=== PATIENT | female | born 1995 | race American Indian/Alaskan Native ===

== ENCOUNTER 2017-05-12 15:09 | Emergency (ER) | payer MEDICAID, OTHER, SELFPAY ==
[2017-05-12 16:12] VITALS: BP 123/81
[2017-05-12] MEDS ORDERED: methylPREDNISolone Sodium Succinate 125 MG/2 ML SDV IVPUSH ONE (16:32)
[2017-05-12] MEDS ORDERED: Sodium Chloride 0.9% 10 ML Syringe FLUSH PRN (16:32)
[2017-05-12] MEDS ORDERED: Albuterol/Ipratropium 3.0-0.5 MG/3 ML Neb Soln NEB ONE (16:32)
[2017-05-12] MEDS ORDERED: Albuterol 0.083% 2.5 MG/3 ML Neb Soln NEB ONE (17:55)
--- NOTE | 2017-05-12 18:56 | EDM.PDOC ---
ED HPI GENERAL MEDICAL PROBLEM - General Chief Complaint: Asthma Stated Complaint: ASTHMA Time Seen by Provider: 05/12/17 16:20 Source of Information: Reports: Patient History Limitations: Reports: No Limitations - History of Present Illness INITIAL COMMENTS - FREE TEXT/NARRATIVE: 21-year-old female presents for evaluation and treatment of asthma exacerbation. Patient reports that she's been sick for "a while." patient reports over the last few days she started coughing that seems to exacerbate her asthma. She is currently complaining of cough, shortness of breath and wheezing. She has a rescue it albuterol inhaler and has been using is "a lot ". She also is on Advair, Singulair. Not any steroids at this time. No fevers. 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 Montelukast [Singulair] 10 mg PO BEDTIME 01/01/16 [History] Tiotropium [Spiriva HandiHaler] 1.29 mcg INH DAILY 02/03/16 [History] Albuterol [Proventil HFA] 2 puff INH Q2H PRN #3 inhaler 01/23/17 [Rx] Albuterol/Ipratropium [DuoNeb 3.0-0.5 MG/3 ML] 3 ml NEB Q2H PRN #10 neb [Rx] Fluticasone/Salmeterol [Advair 250-50 Diskus] 1 puff IH BID 30 Days #1 disk.w.dev 01/23/17 [Rx] Albuterol [IJD: Ventolin HFA] 2 puff INH .TWICE DAILY PRN #18 gm 05/12/17 [Rx] Azithromycin [IJD: Azithromycin] 250 mg PO DAILY #6 tab 05/12/17 [Rx] Inhaler, Assist Devices [Aerochamber with Flowsignal] 1 each ASDIRECTED #1 spacer 05/12/17 [Rx] Prednisone [IMW: predniSONE] 40 mg PO WITHBREAKFAST #11 tab 05/12/17 [Rx] Past Medical History HEENT History: Reports: None Cardiovascular History: Reports: None Respiratory History: Reports: Asthma Genitourinary History: Reports: UTI, Recurrent 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 OB/BYN History: - Infectious Disease History Infectious Disease History: Reports: Chicken Pox - Past Surgical History HEENT Surgical History: Reports: None Cardiovascular Surgical History: Reports: None Respiratory Surgical History: Reports: None Female Surgical History: Reports: None Social & Family History - Family History Family Medical History: Noncontributory Cardiac: Reports: Hypertension Respiratory: Reports: Asthma GI: Reports: None Endocrine/Metabolic: Reports: Diabetes, Type I Oncologic: Reports: Brain - Tobacco Use Smoking Status *Q: Never Smoker Second Hand Smoke Exposure: No - Caffeine Use Caffeine Use: Reports: None - Recreational Drug Use Recreational Drug Use: No Drug Use in Last 12 Months: No ED ROS GENERAL - Review of Systems Review Of Systems: See Below Constitutional: Denies: Fever HEENT: Denies: Ear Pain, Throat Pain Respiratory: Reports: Shortness of Breath, Wheezing, Cough GI/Abdominal: Denies: Nausea, Vomiting ED EXAM, GENERAL - Physical Exam Exam: See Below Exam Limited By: No Limitations General Appearance: Alert, WD/WN, Moderate Distress, Obese Eye Exam: Bilateral Eye: Normal Inspection, PERRL Ears: Normal External Exam, Normal Canal, Hearing Grossly Normal Ear Exam: Bilateral Ear: Other (TMs obscured by cerumen) Nose: Normal Inspection. No: Nasal Flaring Throat/Mouth: Normal Inspection, Normal Lips, Normal Teeth, Normal Oropharynx, Normal Voice, No Airway Compromise Respiratory/Chest: Respiratory Distress (audible wheeing), Wheezing (diffuse expiratory), Retractions (supraclavicular), Other (tachypnic) Cardiovascular: Normal Peripheral Pulses, Regular Rate, Rhythm, No Murmur Neurological: Alert, Oriented, Normal Cognition Psychiatric: Normal Affect, Normal Mood Skin Exam: Warm, Dry, Normal Color Course - Vital Signs Last Recorded V/S: Last Vital Signs Temp 36.0 C 05/12/17 16:09 Pulse 97 05/12/17 16:09 Resp 20 05/12/17 16:09 BP 123/81 05/12/17 16:09 Pulse Ox 95 05/12/17 17:55 - Orders/Labs/Meds Labs: Laboratory Tests 05/12/17 05/12/17 Range/Units 16:40 16:40 WBC 11.64 H (3.98-10.04) K/mm3 RBC 5.46 H (3.98-5.22) M/mm3 Hgb 13.9 (11.2-15.7) gm/L Hct 42.9 (34.1-44.9) % MCV 78.6 L (79.4-94.8) fl MCH 25.5 L (25.6-32.2) pg MCHC 32.4 (32.2-35.5) g/dl RDW Std Deviation 42.7 (36.4-46.3) fL Plt Count 517 H (182-369) K/mm3 MPV 9.0 L (9.4-12.3) fl Neut % (Auto) 51.7 (34.0-71.1) % Lymph % (Auto) 29.9 (19.3-51.7) % [place] % (Auto) 4.4 L (4.7-12.5) % Eos % (Auto) 13.2 H (0.7-5.8) Baso % (Auto) 0.6 (0.1-1.2) % Neut # (Auto) 6.02 (1.56-6.13) K/mm3 Lymph # (Auto) 3.48 (1.18-3.74) K/mm3 [place] # (Auto) 0.51 H (0.24-0.36) K/mm3 Eos # (Auto) 1.54 H (0.04-0.36) K/mm3 Baso # (Auto) 0.07 (0.01-0.08) K/mm3 Sodium 141 (136-145) mEq/L Potassium 4.2 (3.5-5.1) mEq/L Chloride 105 (98-107) mEq/L Carbon Dioxide 23 (21-32) mEq/L Anion Gap 17.2 H (5-15) BUN 7 (7-18) mg/dL Creatinine 0.7 (0.55-1.02) mg/dL Est Cr Clr Drug Dosing 108.86 mL/min Estimated GFR (MDRD) > 60 (>60) mL/min BUN/Creatinine Ratio 10.0 L (14-18) Glucose 100 (74-106) mg/dL Calcium 8.9 (8.5-10.1) mg/dL Magnesium 1.7 L (1.8-2.4) mg/dl Total Bilirubin 0.1 L (0.2-1.0) mg/dL AST 21 (15-37) U/L ALT 40 (14-59) U/L Alkaline Phosphatase 100 (46-116) U/L Total Protein 7.9 (6.4-8.2) g/dl Albumin 3.8 (3.4-5.0) g/dl Globulin 4.1 gm/dL Albumin/Globulin Ratio 0.9 L (1-2) Meds: Medications Discontinued Medications Generic Name Dose Route Start Last Admin Trade Name Freq PRN Reason Stop Dose Admin Albuterol 2.5 mg 05/12/17 17:55 05/12/17 18:03 Proventil Neb Soln NEB 05/12/17 17:56 2.5 mg ONETIME ONE Administration Albuterol/Ipratropium 3 ml 05/12/17 16:32 05/12/17 16:52 Duoneb 3.0-0.5 Mg/3 Ml NEB 05/12/17 16:33 3 ml ONETIME ONE Administration Methylprednisolone Sodium Succinate 125 mg 05/12/17 16:32 05/12/17 16:43 Solu-Medrol IVPUSH 05/12/17 16:33 125 mg ONETIME ONE Administration Sodium Chloride 10 ml 05/12/17 16:32 05/12/17 16:43 Saline Flush FLUSH 10 ml ASDIRECTED PRN Administration Keep Vein Open - Radiology Interpretation Free Text/Narrative:: chest xray shows no acute intrathoracic process - Re-Assessments/Exams Free Text/Narrative Re-Assessment/Exam: 05/12/17 18:43 influenza returned negative. discussed labs and imaging with the patient. significantly improved after steroids and nebs. plan will be to discharge her home with steroids, a z-domingo and close follow-up. discharge instructions as documented. Departure - Departure Time of Disposition: 18:50 Disposition: Home, Self-Care 01 Condition: Fair Clinical Impression: Exacerbation of asthma - Discharge Information Prescriptions: Albuterol [IJD: Ventolin HFA] 2 puff INH .TWICE DAILY PRN #18 gm PRN Reason: Shortness Of Breath Azithromycin [IJD: Azithromycin] 250 mg PO DAILY #6 tab Inhaler, Assist Devices [Aerochamber with Flowsignal] 1 each MC ASDIRECTED #1 spacer Prednisone [IMW: predniSONE] 40 mg PO WITHBREAKFAST #11 tab Instructions: Asthma, Adult Referrals: PCP,None [Primary Care Provider] - Forms: ED Department Discharge Additional Instructions: Azithromycin as prescribed. Two tabs on day 1 followed by 1 tabs on day 2 through 5 for 5 days of antibiotic total. Use the albuterol inhaler 1-2 tabs every 4-6 hours as a for shortness of breath. 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 Prednisone taper. 40 mg days 1 through 3, 20 mg days 4 through 6 and 10 mg days 7 through 10. Follow-up with family medicine this week for recheck. Recommend zafar jernigan or Arcelia Oneil at the [facility]. Call [phone] to schedule one of them. Please return to the ER for symptoms change or worsen.
--- NOTE | 2017-05-13 11:53 | CR ---
Chest: Two views of the chest were obtained. Comparison: Prior chest x-ray of 04/27/16. Heart size and mediastinum are normal. Lungs are clear. Bony structures are within normal limits. Impression: 1. Nothing acute is identified on two-view chest x-ray. Diagnostic code #1
== END 2017-05-12 19:07 | disposition home or self-care (01) ==
LOC: JD.ED 15:09
DX: J45.901 Unspecified asthma with (acute) exacerbation (principal); Z79.2 Long term (current) use of antibiotics; Z79.899 Other long term (current) drug therapy; Z88.1 Allergy status to other antibiotic agents
CPT/HCPCS: 36415; 71046; 80053; 83735; 85025; 87804; 94640; 96374; 99285; J2930; J7050; 99284

== ENCOUNTER 2017-06-28 02:20 | Emergency (ER) | payer MEDICAID, SELFPAY ==
[2017-06-28 02:32] VITALS: BP 138/83
[2017-06-28] MEDS ORDERED: Bupivacaine 0.5% 10 ML SDV INJECT ONE (02:54)
--- NOTE | 2017-06-28 03:15 | EDM.PDOC ---
ED HPI GENERAL MEDICAL PROBLEM - General Chief Complaint: ENT Problem Stated Complaint: TOOTH ACHE Time Seen by Provider: 06/28/17 02:49 Source of Information: Reports: Patient History Limitations: Reports: No Limitations - History of Present Illness INITIAL COMMENTS - FREE TEXT/NARRATIVE: The patient presents with left lower molar pain. This has been coming and going for months but now for the past few days it is constant and very painful. She has a cracked tooth. She has no fever or chills. Onset: Gradual Duration: Week(s): Location: Reports: Face Quality: Reports: Sharp Severity: Severe Improves with: Reports: None Worsens with: Reports: None Associated Symptoms: Reports: No Other Symptoms Left Lower Tooth/Teeth Pain Score (Numeric/FACES): 7 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 06/28/17 02:32 Home Meds: Home Meds Montelukast [Singulair] 10 mg PO BEDTIME 01/01/16 [History] Tiotropium [Spiriva HandiHaler] 1.29 mcg INH DAILY 02/03/16 [History] Albuterol [Proventil HFA] 2 puff INH Q2H PRN #3 inhaler 01/23/17 [Rx] Albuterol/Ipratropium [DuoNeb 3.0-0.5 MG/3 ML] 3 ml NEB Q2H PRN #10 neb [Rx] Fluticasone/Salmeterol [Advair 250-50 Diskus] 1 puff IH BID 30 Days #1 disk.w.dev 01/23/17 [Rx] Inhaler, Assist Devices [Aerochamber with Flowsignal] 1 each ASDIRECTED #1 spacer 05/12/17 [Rx] Past Medical History HEENT History: Reports: None Cardiovascular History: Reports: None Respiratory History: Reports: Asthma Genitourinary History: Reports: UTI, Recurrent 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/BYN History: - Infectious Disease History Infectious Disease History: Reports: Chicken Pox - Past Surgical History HEENT Surgical History: Reports: None Cardiovascular Surgical History: Reports: None Respiratory Surgical History: Reports: None Female Surgical History: Reports: None Social & Family History - Family History Family Medical History: Noncontributory Cardiac: Reports: Hypertension Respiratory: Reports: Asthma GI: Reports: None Endocrine/Metabolic: Reports: Diabetes, Type I Oncologic: Reports: Brain - Tobacco Use Smoking Status *Q: Never Smoker Second Hand Smoke Exposure: No - Caffeine Use Caffeine Use: Reports: None - Recreational Drug Use Recreational Drug Use: No Drug Use in Last 12 Months: No ED ROS ENT - Review of Systems Review Of Systems: See Below Constitutional: Reports: No Symptoms HEENT: Reports: Dental Pain Respiratory: Reports: No Symptoms Cardiovascular: Reports: No Symptoms Endocrine: Reports: No Symptoms GI/Abdominal: Reports: No Symptoms : Reports: No Symptoms ED EXAM, ENT - Physical Exam Exam: See Below Exam Limited By: No Limitations General Appearance: Alert, No Apparent Distress Ears: Normal External Exam Nose: Normal Inspection Mouth/Throat: Other (Cracked left lower molar) Head: Atraumatic, Normocephalic Neck: Normal Inspection Respiratory/Chest: No Respiratory Distress ED ENT PROCEDURES - Additional/Other Procedure(s) Other (Free Text) Procedure(s): I used 2ccs of 0.5% bupivacain to anaesthatize the left inferior alveolar nerve. The patient tolerated the procedure well and she had good anaesthesia. Course - Vital Signs Last Recorded V/S: Last Vital Signs Temp 97.7 F 06/28/17 02:28 Pulse 86 06/28/17 02:28 Resp 18 06/28/17 02:28 BP 138/83 06/28/17 02:28 Pulse Ox 97 06/28/17 02:28 - Orders/Labs/Meds Meds: Medications Discontinued Medications Generic Name Dose Route Start Last Admin Trade Name Loni PRN Reason Stop Dose Admin Bupivacaine HCl 10 ml 06/28/17 02:54 06/28/17 03:03 Sensorcaine-Mpf 0.5% INJECT 06/28/17 02:55 10 ml ONETIME ONE Administration - Re-Assessments/Exams Free Text/Narrative Re-Assessment/Exam: 06/28/17 03:12 I used 0.5% bupivacane to anaesthetize her tooth. I will get her on some hydrocodone and pen VK. Departure - Departure Time of Disposition: 03:15 Disposition: Home, Self-Care 01 Condition: Good Clinical Impression: Pain, dental, Dental abscess - Discharge Information Referrals: Antonia Arzate NP [Primary Care Provider] - Additional Instructions: Take the penicillin and hydrocodone as prescribed. Follow up with your dentist. Please return if you are worse.
== END 2017-06-28 03:32 | disposition home or self-care (01) ==
LOC: JD.ED 02:20
DX: K04.7 Periapical abscess without sinus (principal); J45.909 Unspecified asthma, uncomplicated; Z88.1 Allergy status to other antibiotic agents
CPT/HCPCS: 64400; 99283-25

== ENCOUNTER 2017-08-12 23:49 | Emergency (ER) | payer MEDICAID ==
[2017-08-12 23:56] VITALS: BP 114/58
[2017-08-13] MEDS: Sodium Chloride 0.9% 1,000 ML ONE ×2 (01:53→02:04)
[2017-08-13] MEDS ORDERED: Sodium Chloride 0.9% 1,000 ML IRR SCH (02:00)
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
== END 2017-08-13 02:10 | disposition home or self-care (01) ==
LOC: JD.ED 23:49
DX: Z77.098 Contact with and (suspected) exposure to other hazardous, chiefly nonmedicinal, chemicals (principal); H57.8 Other specified disorders of eye and adnexa; Z88.1 Allergy status to other antibiotic agents; Z79.899 Other long term (current) drug therapy; J45.909 Unspecified asthma, uncomplicated
CPT/HCPCS: 99283; J7040

== ENCOUNTER 2017-10-26 10:56 | Inpatient (IN) | payer MEDICAID ==
[2017-10-26] MEDS ORDERED: Albuterol/Ipratropium 3.0-0.5 MG/3 ML Neb Soln NEB ONE ×2 (11:42→12:32)
--- NOTE | 2017-10-26 11:47 | EDM.PDOC ---
ED HPI GENERAL MEDICAL PROBLEM - General Chief Complaint: Chest Pain Stated Complaint: CHEST PAIN Time Seen by Provider: 10/26/17 11:32 Source of Information: Reports: Patient History Limitations: Reports: No Limitations - History of Present Illness INITIAL COMMENTS - FREE TEXT/NARRATIVE: Patient is a 22-year-old female presents ED complaining of chest tightness and discomfort. States this morning at about 9:00 symptoms started. She was changing diapers at that time. Pain is worse with taking a deep breath and also with any movement. States she is wheezing. She's had a cough with white sputum faint amount. She's had some sinus congestion with runny nose for the past few days. No documented fever. No sore throat. She has a history of asthma and states she can take a deep breath but notes that with excessive breathing her chest is more tight. She is very anxious as we speak. Crying as we speak. She has no history of DVT or PE. She is currently a nonsmoker. She does not take control. She has taken albuterol, Symbicort, DayQuil, and also saline spray with minimal relief. Patient is a [id number] mom takes care of 2 children. Last menstrual cycle 10/04/2017. She has not been sexually active and denies being . See history 2, para 2, 0, miscarriage 0. 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: Reports: Other (see below) Other 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: inhaler, neb Chest Pain Score (Numeric/FACES): 8 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 10/26/17 19:16 Home Meds: Home Meds Montelukast [Singulair] 10 mg PO BEDTIME 01/01/16 [History] Albuterol [Proventil HFA] 2 puff INH Q2H PRN #3 inhaler 01/23/17 [Rx] Albuterol/Ipratropium [DuoNeb 3.0-0.5 MG/3 ML] 3 ml NEB Q2H PRN #10 neb [Rx] Inhaler, Assist Devices [Aerochamber with Flowsignal] 1 each MC ASDIRECTED #1 spacer 05/12/17 [Rx] Past Medical History HEENT History: Reports: None Cardiovascular History: Reports: None Respiratory History: Reports: Asthma Genitourinary History: Reports: UTI, Recurrent ROLLWAY WORKER History: Reports: Other ROLLWAY WORKER History: - Infectious Disease History Infectious Disease History: Reports: Chicken Pox - Past Surgical History HEENT Surgical History: Reports: Oral Surgery Cardiovascular Surgical History: Reports: None Female Surgical History: Reports: None Social & Family History - Family History Family Medical History: Noncontributory Cardiac: Reports: Hypertension Respiratory: Reports: Asthma GI: Reports: None Endocrine/Metabolic: Reports: Diabetes, Type I Oncologic: Reports: Brain - Tobacco Use Smoking Status *Q: Never Smoker - Caffeine Use Caffeine Use: Reports: None - Recreational Drug Use Recreational Drug Use: No - Living Situation & Occupation Living situation: Reports: Single, with Family Occupation: Unemployed ED ROS GENERAL - Review of Systems Review Of Systems: ROS reveals no pertinent complaints other than HPI. ED EXAM, GENERAL - Physical Exam Exam: See Below Exam Limited By: No Limitations General Appearance: Alert, WD/WN, Anxious, Mild Distress Ears: Hearing Grossly Normal Nose: Normal Inspection, Nasal Swelling, Nasal Drainage, Clear Rhinorrhea Throat/Mouth: Normal Voice, No Airway Compromise Head: Atraumatic, Normocephalic Neck: Normal Inspection, Supple, Non-Tender, Full Range of Motion Respiratory/Chest: No Respiratory Distress, No Accessory Muscle Use, Chest Non- Tender (With palpation), Wheezing (Throughout) Cardiovascular: Normal Peripheral Pulses, No Murmur, Tachycardia Peripheral Pulses: 3+: Radial (L), Radial (R) GI/Abdominal: Normal Bowel Sounds, Soft, Non-Tender, No Organomegaly, No Distention Extremities: Normal Inspection, Normal Range of Motion, Non-Tender, No Pedal Edema Neurological: Alert, Oriented, CN II-XII Intact, Normal Cognition, No Motor/ Sensory Deficits Psychiatric: Normal Affect, Normal Mood Skin Exam: Warm, Dry, Intact, Normal Color, No Rash Course - Vital Signs Last Recorded V/S: Last Vital Signs Temp 97.7 F 10/27/17 08:00 Pulse 92 10/27/17 08:03 Resp 15 10/27/17 08:00 BP 107/55 L 10/27/17 08:03 Pulse Ox 93 L 10/27/17 09:40 - Orders/Labs/Meds Orders: Active Orders 24 hr Category Date Time Status CULTURE BLOOD [BC] Stat Lab 10/26/17 15:34 Ordered CULTURE BLOOD [BC] Stat Lab 10/26/17 15:56 Received DRUG SCREEN, URINE [URCHEM] Stat Lab 10/26/17 14:53 Ordered Blood Culture x2 Reflex Set [OM.PC] Stat Oth 10/26/17 15:34 Ordered Medication Orders Acetaminophen (Tylenol) 650 mg PO Q6H PRN PRN Reason: Pain/Fever Albuterol (Proventil Neb Soln) 2.5 mg NEB Q2H PRN PRN Reason: Shortness of Breath Last Admin: 10/27/17 02:30 Dose: 2.5 mg Admin: 10/26/17 22:44 Dose: 2.5 mg Albuterol/Ipratropium (Duoneb 3.0-0.5 Mg/3 Ml) 3 ml NEB QIDRT [facility] Last Admin: 10/27/17 09:39 Dose: 3 ml Admin: 10/27/17 05:09 Dose: 3 ml Benzonatate (Tessalon Perles) 200 mg PO TID [facility] Last Admin: 10/27/17 09:06 Dose: 200 mg Admin: 10/26/17 21:59 Dose: 200 mg Enoxaparin Sodium (Lovenox) 40 mg SUBCUT BEDTIME [facility] Last Admin: 10/26/17 21:49 Dose: 40 mg Guaifenesin/Phenylephrine HCl (Robitussin Dm) 10 ml PO Q6H PRN PRN Reason: Cough Last Admin: 10/27/17 05:01 Dose: 10 ml Admin: 10/26/17 22:00 Dose: 10 ml Azithromycin 500 mg/ Sodium (Chloride) 250 mls @ 250 mls/hr IV Q24H [facility] Last Admin: 10/26/17 20:03 Dose: 250 mls/hr Ceftriaxone Sodium 2 gm/ (Sodium Chloride) 100 mls @ 100 mls/hr IV Q24H [facility] Last Admin: 10/26/17 22:00 Dose: 100 mls/hr Lactated Ringer's (Ringers, Lactated) 1,000 mls @ 150 mls/hr IV ASDIRECTED [facility] Stop: 10/27/17 16:15 Methylprednisolone Sodium Succinate (Solu-Medrol) 125 mg IVPUSH Q6H [facility] Last Admin: 10/27/17 09:06 Dose: 125 mg Admin: 10/27/17 03:33 Dose: 125 mg Admin: 10/26/17 21:47 Dose: 125 mg Montelukast Sodium (Singulair) 10 mg PO BEDTIME GISSELL Last Admin: 10/26/17 21:49 Dose: 10 mg Temazepam (Restoril) 7.5 mg PO BEDTIME PRN PRN Reason: Insomnia Labs: Laboratory Tests 10/26/17 10/26/17 10/26/17 Range/Units 12:17 12:17 12:17 WBC 12.03 H (3.98-10.04) K/mm3 RBC 5.56 H (3.98-5.22) M/mm3 Hgb 14.9 (11.2-15.7) gm/L Hct 44.7 (34.1-44.9) % MCV 80.4 (79.4-94.8) fl MCH 26.8 (25.6-32.2) pg MCHC 33.3 (32.2-35.5) g/dl RDW Std Deviation 41.4 (36.4-46.3) fL Plt Count 396 H (182-369) K/mm3 MPV 9.5 (9.4-12.3) fl Neutrophils % (Manual) 73 H (40-60) % Band Neutrophils % 1 (0-10) % Lymphocytes % (Manual) 20 (20-40) % Atypical Lymphs % 0 % Monocytes % (Manual) 2 (2-10) % Eosinophils % (Manual) 4 (0.7-5.8) % Basophils % (Manual) 0 L (0.1-1.2) Platelet Estimate Adequate RBC Morph Comment Normal D-Dimer, Quantitative 0.21 (0.19-0.50) mg/L Sodium 143 (136-145) mEq/L Potassium 4.7 (3.5-5.1) mEq/L Chloride 107 (98-107) mEq/L Carbon Dioxide 24 (21-32) mEq/L Anion Gap 16.7 H (5-15) BUN 6 L (7-18) mg/dL Creatinine 0.8 (0.55-1.02) mg/dL Est Cr Clr Drug Dosing 90.47 mL/min Estimated GFR (MDRD) > 60 (>60) mL/min BUN/Creatinine Ratio 7.5 L (14-18) Glucose 110 H (74-106) mg/dL Lactic Acid (0.4-2.0) mmol/L Calcium 9.0 (8.5-10.1) mg/dL Total Bilirubin 0.3 (0.2-1.0) mg/dL AST 21 (15-37) U/L ALT 40 (14-59) U/L Alkaline Phosphatase 100 (46-116) U/L C-Reactive Protein 3.8 H* (<1.0) mg/dL Total Protein 8.4 H (6.4-8.2) g/dl Albumin 4.0 (3.4-5.0) g/dl Globulin 4.4 gm/dL Albumin/Globulin Ratio 0.9 L (1-2) TSH 3rd Generation (0.358-3.74) uIU/mL HCG, Qual (NEGATIVE) Urine Color (Yellow) Urine Appearance (Clear) Urine pH (5.0-8.0) Ur Specific Hawley (1.005-1.030) Urine Protein (Negative) Urine Glucose (UA) (Negative) Urine Ketones (Negative) Urine Occult Blood (Negative) Urine Nitrite (Negative) Urine Bilirubin (Negative) Urine Urobilinogen (0.2-1.0) Ur Leukocyte Esterase (Negative) Urine RBC (0-5) /hpf Urine WBC (0-5) /hpf Ur Epithelial Cells (0-5) /hpf Urine Bacteria (FEW) /hpf Urine Mucus (FEW) /hpf Urine Opiates Screen (NEGATIVE) Ur Buprenorphine Scrn (NEGATIVE) Ur Oxycodone Screen (NEGATIVE) Urine Methadone Screen (NEGATIVE) Ur Propoxyphene Screen (NEGATIVE) Ur Barbiturates Screen (NEGATIVE) Ur Tricyclics Screen (NEGATIVE) Ur Phencyclidine Scrn (NEGATIVE) Ur Amphetamine Screen (NEGATIVE) U Methamphetamines Scrn (NEGATIVE) U Benzodiazepines Scrn (NEGATIVE) U Cocaine Metab Screen (NEGATIVE) U Marijuana (THC) Screen (NEGATIVE) Mycoplasma pneumon IgM (NEGATIVE) 10/26/17 10/26/17 10/26/17 Range/Units 12:17 12:17 12:17 WBC (3.98-10.04) K/mm3 RBC (3.98-5.22) M/mm3 Hgb (11.2-15.7) gm/L Hct (34.1-44.9) % MCV (79.4-94.8) fl MCH (25.6-32.2) pg MCHC (32.2-35.5) g/dl RDW Std Deviation (36.4-46.3) fL Plt Count (182-369) K/mm3 MPV (9.4-12.3) fl Neutrophils % (Manual) (40-60) % Band Neutrophils % (0-10) % Lymphocytes % (Manual) (20-40) % Atypical Lymphs % % Monocytes % (Manual) (2-10) % Eosinophils % (Manual) (0.7-5.8) % Basophils % (Manual) (0.1-1.2) Platelet Estimate RBC Morph Comment D-Dimer, Quantitative (0.19-0.50) mg/L Sodium (136-145) mEq/L Potassium (3.5-5.1) mEq/L Chloride (98-107) mEq/L Carbon Dioxide (21-32) mEq/L Anion Gap (5-15) BUN (7-18) mg/dL Creatinine (0.55-1.02) mg/dL Est Cr Clr Drug Dosing mL/min Estimated GFR (MDRD) (>60) mL/min BUN/Creatinine Ratio (14-18) Glucose (74-106) mg/dL Lactic Acid (0.4-2.0) mmol/L Calcium (8.5-10.1) mg/dL Total Bilirubin (0.2-1.0) mg/dL AST (15-37) U/L ALT (14-59) U/L Alkaline Phosphatase (46-116) U/L C-Reactive Protein (<1.0) mg/dL Total Protein (6.4-8.2) g/dl Albumin (3.4-5.0) g/dl Globulin gm/dL Albumin/Globulin Ratio (1-2) TSH 3rd Generation 1.127 (0.358-3.74) uIU/mL HCG, Qual Negative (NEGATIVE) Urine Color (Yellow) Urine Appearance (Clear) Urine pH (5.0-8.0) Ur Specific Hawley (1.005-1.030) Urine Protein (Negative) Urine Glucose (UA) (Negative) Urine Ketones (Negative) Urine Occult Blood (Negative) Urine Nitrite (Negative) Urine Bilirubin (Negative) Urine Urobilinogen (0.2-1.0) Ur Leukocyte Esterase (Negative) Urine RBC (0-5) /hpf Urine WBC (0-5) /hpf Ur Epithelial Cells (0-5) /hpf Urine Bacteria (FEW) /hpf Urine Mucus (FEW) /hpf Urine Opiates Screen (NEGATIVE) Ur Buprenorphine Scrn (NEGATIVE) Ur Oxycodone Screen (NEGATIVE) Urine Methadone Screen (NEGATIVE) Ur Propoxyphene Screen (NEGATIVE) Ur Barbiturates Screen (NEGATIVE) Ur Tricyclics Screen (NEGATIVE) Ur Phencyclidine Scrn (NEGATIVE) Ur Amphetamine Screen (NEGATIVE) U Methamphetamines Scrn (NEGATIVE) U Benzodiazepines Scrn (NEGATIVE) U Cocaine Metab Screen (NEGATIVE) U Marijuana (THC) Screen (NEGATIVE) Mycoplasma pneumon IgM Negative (NEGATIVE) 10/26/17 10/26/17 10/26/17 Range/Units 14:53 14:53 15:56 WBC (3.98-10.04) K/mm3 RBC (3.98-5.22) M/mm3 Hgb (11.2-15.7) gm/L Hct (34.1-44.9) % MCV (79.4-94.8) fl MCH (25.6-32.2) pg MCHC (32.2-35.5) g/dl RDW Std Deviation (36.4-46.3) fL Plt Count (182-369) K/mm3 MPV (9.4-12.3) fl Neutrophils % (Manual) (40-60) % Band Neutrophils % (0-10) % Lymphocytes % (Manual) (20-40) % Atypical Lymphs % % Monocytes % (Manual) (2-10) % Eosinophils % (Manual) (0.7-5.8) % Basophils % (Manual) (0.1-1.2) Platelet Estimate RBC Morph Comment D-Dimer, Quantitative (0.19-0.50) mg/L Sodium (136-145) mEq/L Potassium (3.5-5.1) mEq/L Chloride (98-107) mEq/L Carbon Dioxide (21-32) mEq/L Anion Gap (5-15) BUN (7-18) mg/dL Creatinine (0.55-1.02) mg/dL Est Cr Clr Drug Dosing mL/min Estimated GFR (MDRD) (>60) mL/min BUN/Creatinine Ratio (14-18) Glucose (74-106) mg/dL Lactic Acid 1.3 (0.4-2.0) mmol/L Calcium (8.5-10.1) mg/dL Total Bilirubin (0.2-1.0) mg/dL AST (15-37) U/L ALT (14-59) U/L Alkaline Phosphatase (46-116) U/L C-Reactive Protein (<1.0) mg/dL Total Protein (6.4-8.2) g/dl Albumin (3.4-5.0) g/dl Globulin gm/dL Albumin/Globulin Ratio (1-2) TSH 3rd Generation (0.358-3.74) uIU/mL HCG, Qual (NEGATIVE) Urine Color Yellow (Yellow) Urine Appearance Clear (Clear) Urine pH 6.0 (5.0-8.0) Ur Specific Hawley 1.020 (1.005-1.030) Urine Protein Negative (Negative) Urine Glucose (UA) Negative (Negative) Urine Ketones Negative (Negative) Urine Occult Blood Trace-intact H (Negative) Urine Nitrite Negative (Negative) Urine Bilirubin Negative (Negative) Urine Urobilinogen 0.2 (0.2-1.0) Ur Leukocyte Esterase Negative (Negative) Urine RBC 0-5 (0-5) /hpf Urine WBC 0-5 (0-5) /hpf Ur Epithelial Cells 0-5 (0-5) /hpf Urine Bacteria Rare (FEW) /hpf Urine Mucus Not seen (FEW) /hpf Urine Opiates Screen Negative (NEGATIVE) Ur Buprenorphine Scrn Negative (NEGATIVE) Ur Oxycodone Screen Negative (NEGATIVE) Urine Methadone Screen Negative (NEGATIVE) Ur Propoxyphene Screen Negative (NEGATIVE) Ur Barbiturates Screen Negative (NEGATIVE) Ur Tricyclics Screen Negative (NEGATIVE) Ur Phencyclidine Scrn Negative (NEGATIVE) Ur Amphetamine Screen Negative (NEGATIVE) U Methamphetamines Scrn Negative (NEGATIVE) U Benzodiazepines Scrn Negative (NEGATIVE) U Cocaine Metab Screen Negative (NEGATIVE) U Marijuana (THC) Screen Negative (NEGATIVE) Mycoplasma pneumon IgM (NEGATIVE) Meds: Medications Generic Name Dose Route Start Last Admin Trade Name Freq PRN Reason Stop Dose Admin Acetaminophen 650 mg 10/26/17 19:05 Tylenol PO Q6H PRN Pain/Fever Albuterol 2.5 mg 10/26/17 19:03 10/27/17 02:30 Proventil Neb Soln NEB 2.5 mg Q2H PRN Administration Shortness of Breath Albuterol/Ipratropium 3 ml 10/27/17 06:00 10/27/17 09:39 Duoneb 3.0-0.5 Mg/3 Ml NEB 3 ml QIDRT GISSELL Administration Benzonatate 200 mg 10/26/17 21:00 10/27/17 09:06 Tessalon Perles PO 200 mg TID GISSELL Administration Enoxaparin Sodium 40 mg 10/26/17 21:00 10/26/17 21:49 Lovenox SUBCUT 40 mg BEDTIME GISSELL Administration Guaifenesin/Phenylephrine HCl 10 ml 10/26/17 21:33 10/27/17 05:01 Robitussin Dm PO 10 ml Q6H PRN Administration Cough Azithromycin 500 mg/ Sodium 250 mls @ 250 mls/hr 10/26/17 19:00 10/26/17 20: 03 Chloride IV 250 mls/hr Q24H GISSELL Administration Ceftriaxone Sodium 2 gm/ 100 mls @ 100 mls/hr 10/26/17 22:00 10/26/17 22:00 Sodium Chloride IV 100 mls/hr Q24H GISSELL Administration Lactated Ringer's 1,000 mls @ 150 mls/hr 10/27/17 10:15 Ringers, Lactated IV 10/27/17 16:15 ASDIRECTED GISSELL Methylprednisolone Sodium Succinate 125 mg 10/26/17 22:00 10/27/17 09:06 Solu-Medrol IVPUSH 125 mg Q6H GISSELL Administration Montelukast Sodium 10 mg 10/26/17 21:00 10/26/17 21:49 Singulair PO 10 mg BEDTIME GISSELL Administration Temazepam 7.5 mg 10/26/17 19:15 Restoril PO BEDTIME PRN Insomnia Discontinued Medications Generic Name Dose Route Start Last Admin Trade Name Freq PRN Reason Stop Dose Admin Acetaminophen 975 mg 10/26/17 17:42 10/26/17 18:07 Tylenol PO 10/26/17 17:43 975 mg NOW ONE Administration Albuterol 2.5 mg 10/26/17 15:09 10/26/17 15:41 Proventil Neb Soln NEB 10/26/17 15:10 2.5 mg ONETIME ONE Administration Albuterol 2.5 mg 10/26/17 18:06 10/26/17 18:32 Proventil Neb Soln NEB 10/26/17 18:07 2.5 mg ONETIME ONE Administration Albuterol 2.5 mg 10/26/17 18:06 10/26/17 19:31 Proventil Neb Soln NEB 10/26/17 18:07 Not Given ONETIME ONE Albuterol/Ipratropium 3 ml 10/26/17 11:42 10/26/17 12:18 Duoneb 3.0-0.5 Mg/3 Ml NEB 10/26/17 11:43 3 ml ONETIME ONE Administration Albuterol/Ipratropium 3 ml 10/26/17 12:32 10/26/17 12:47 Duoneb 3.0-0.5 Mg/3 Ml NEB 10/26/17 12:33 3 ml ONETIME ONE Administration Albuterol/Ipratropium 3 ml 10/26/17 20:00 10/26/17 21:27 Duoneb 3.0-0.5 Mg/3 Ml NEB Not Given QID GISSELL Sodium Chloride 1,000 mls @ 999 mls/hr 10/26/17 12:33 10/26/17 12:50 Normal Saline IV 10/26/17 13:33 999 mls/hr ONETIME ONE Administration Sodium Chloride 1,000 mls @ 999 mls/hr 10/26/17 15:34 10/26/17 15:40 Normal Saline IV 10/26/17 16:34 999 mls/hr ONETIME ONE Administration Ceftriaxone Sodium 2 gm/ 100 mls @ 200 mls/hr 10/26/17 22:00 Sodium Chloride IV Q24H GISSELL Magnesium Sulfate 4 gm/ Premix 100 mls @ 300 mls/hr 10/27/17 10:02 IV 10/27/17 10:03 ONETIME ONE Lorazepam 0.5 mg 10/26/17 12:33 10/26/17 15:48 Ativan IVPUSH 10/26/17 12:34 0.5 mg ONETIME ONE Administration Lorazepam Confirm 10/26/17 15:48 10/26/17 16:55 Ativan Administered 10/26/17 15:49 Not Given Dose 2 mg .ROUTE .STK-MED ONE Methylprednisolone Sodium Succinate 125 mg 10/26/17 15:33 10/26/17 15:35 Solu-Medrol IVPUSH 10/26/17 15:34 125 mg ONETIME ONE Administration Prednisone 40 mg 10/26/17 13:02 10/26/17 16:55 Prednisone PO 10/26/17 13:03 Not Given ONETIME ONE - Re-Assessments/Exams Free Text/Narrative Re-Assessment/Exam: Patients heart rates 133. SPO2 91% on room air. Blood pressure within normal limits. She is afebrile. IV established. Initial lab work was include: CBC, chem 14, CRP, d-dimer, chest x-ray two-view, and EKG. EKG revealed sinus tachycardia at a rate of 132. No acute ST changes noted. Chest x-ray impression: Reviewed with Dr. Chun with no findings concerning for pneumonia. Reassessment, patient states breathing is improving. Still having chest tightness. Worse with taking a deep breath. Heart rate remains tachycardic 139. SPO2 92%. I ordered a second DuoNeb, Ativan 0.5 mg IVP since she appears anxious , and normal saline 1 L IV bolus. Still awaiting for labs to be completed. Labs reviewed: White blood cell count mildly elevated at 12.03, platelet count 396, hemoglobin 14.9. D-dimer 0.21.CMP no significant findings. CRP 3.8. HCG negative. TSH, UA, and urine drug screen pending. Ordered prednisone 40mg PO. 1436 Reexamination patient's heart rate remains 118, respiratory rate 29, SPO2 89-92%. Patient states with ambulation and exertion she is a little short of breath. I do believe patient requires hospitalization for asthma exacerbation. [address] Dr[address] Carrera with no answer. They will continue to try. 10/26/17 15:07 Reassessment, patient is upset after child vomited all over herself. Patient is more short of breath. Continues to have audible wheezes. Ordered albuterol neb tx. 10/26/17 15:25 Per nursing staff patient was having increased difficult with breathing. Has a hard time catching her breath. Complaining of increasing chest discomfort. O2 sats 86% on room air. Heart rate 143. Patient is crying. Sweat noted to the upper lip and nose. Temperature recheck 101.2F. Lung sounds continued to have expiratory wheezing throughout. Nasal cannula placed 4 L/m. SPO2 93%. Heart rate decreasing. During this time I did speak with Dr. Carrera sandstone splitter hospitalist for admitting the patient. Suggested ordering site Medrol 125 mg IV. I had ordered a ordered a albuterol neb treatment and requested completion now. dental services director will be over to speak with the patient and arranging placement for the kids. Once kids are taken care of patient will be transferred over to the hospital. Patient's nurse brought to my attention the patient did not receive oral prednisone. 1609 They are unable to come in contact with the to come and get the kids so the patient can be admitted to the hospital. In addition they were only able to obtain one blood culture along with the lactic acid. 1808 Reassessment, patient continuing to have sob. HR 120's, BP stable. Ordered albuterol neb tx x 1. We are awaiting for patient to be transferred to the floor. Patient requires ICU. I spoke with Dr. Carrera and she was updated about patients status. Patient was admitted to the hospital with orders for admission placed by Nursing Staff. Departure - Departure Time of Disposition: 14:36 Disposition: Admitted As Inpatient 65 Condition: Fair Clinical Impression: Exacerbation of asthma Qualifiers: Asthma severity: moderate Asthma persistence: persistent Qualified Code(s): J45.41 - Moderate persistent asthma with (acute) exacerbation - Discharge Information - My Orders Last 24 Hours: My Active Orders 10/26/17 14:53 DRUG SCREEN, URINE [URCHEM] Stat 10/26/17 15:34 CULTURE BLOOD [BC] Stat Blood Culture x2 Reflex Set [OM.PC] Stat 10/26/17 15:56 CULTURE BLOOD [BC] Stat - Assessment/Plan Last 24 Hours: My Active Orders 10/26/17 14:53 DRUG SCREEN, URINE [URCHEM] Stat 10/26/17 15:34 CULTURE BLOOD [BC] Stat Blood Culture x2 Reflex Set [OM.PC] Stat 10/26/17 15:56 CULTURE BLOOD [BC] Stat
[2017-10-26] MEDS ORDERED: Sodium Chloride 0.9% 1,000 ML IV ONE ×2 (12:33→15:34)
[2017-10-26] MEDS ORDERED: LORazepam 2 MG/ML SDV IVPUSH ONE (12:33)
--- NOTE | 2017-10-26 13:55 | CR ---
Chest: Two views of the chest were obtained. Comparison: Prior chest x-ray of 05/12/17. Heart size and mediastinum are normal. Lungs are clear. Bony structures are unremarkable. Impression: 1. Nothing acute is seen on two-view chest x-ray. Diagnostic code #1
[2017-10-26] MEDS ORDERED: Albuterol 0.083% 2.5 MG/3 ML Neb Soln NEB ONE ×3 (15:09→18:06)
[2017-10-26] MEDS ORDERED: methylPREDNISolone Sodium Succinate 125 MG/2 ML SDV IVPUSH ONE (15:33)
[2017-10-26] MEDS: LORazepam 2 MG/ML SDV ONE ×2 (15:57→16:55)
[2017-10-26] MEDS: predniSONE 20 MG Tab PO ONE ×2 (15:58→16:55)
[2017-10-26] MEDS ORDERED: Acetaminophen 325 MG Tab PO ONE (17:42)
[2017-10-26] MEDS ORDERED: Temazepam 7.5 MG Cap PO PRN (19:15)
[2017-10-26] MEDS ORDERED: Azithromycin 500 MG AdvVial IV SCH (19:15)
--- NOTE | 2017-10-26 19:22 | PCM.HP ---
H&P History of Present Illness - General Date of Service: 10/26/17 Admit Problem/Dx: Admission Diagnosis/Problem Admission Diagnosis/Problem Asthma with acute exacerbation Source of Information: Provider History Limitations: Reports: No Limitations, Other (Patient was extremely anxious and crying, could not provide a history) - History of Present Illness Initial Comments - Free Text/Narative: 22 year old female with asthma presents with a history of SOB, productive cough with difficulty breathing. The symptoms have been present for 24-48 hours. She had to rest frequently while trying to seek medical assistance. The patient will be admitted to the ICU with elevated resp rate and hypoxia. She is a full code. Onset of Symptoms: Reports: Gradual Symptom Onset Date: 10/24/17 Duration of Symptoms: Reports: Day(s):, Getting Worse Location: Reports: Chest Quality: Reports: Same as Previous Episode Improves with: Reports: Medication Worsens with: Reports: None Context: Reports: Sick Contact (unknown), Exertion (Exacerbation of SOB) Associated Symptoms: Reports: cough w sputum, Diaphoresis, Fever/Chills, Loss of Appetite, Malaise, Nausea/Vomiting, Shortness of Breath, Weakness Chest Pain Score (Numeric/FACES): 8 - Related Data Allergies/Adverse Reactions: Allergies Allergy/AdvReac Type Severity Reaction Status Date / Time levofloxacin Allergy Mild Hives Verified 10/26/17 19:16 Home Medications: Home Meds Montelukast [Singulair] 10 mg PO BEDTIME 01/01/16 [History] Albuterol [Proventil HFA] 2 puff INH Q2H PRN #3 inhaler 01/23/17 [Rx] Albuterol/Ipratropium [DuoNeb 3.0-0.5 MG/3 ML] 3 ml NEB Q2H PRN #10 neb [Rx] Inhaler, Assist Devices [Aerochamber with Flowsignal] 1 each MC ASDIRECTED #1 spacer 05/12/17 [Rx] Past Medical History HEENT History: Reports: None Cardiovascular History: Reports: None Respiratory History: Reports: Asthma Genitourinary History: Reports: UTI, Recurrent [employer] History: Reports: Other OB/BYN History: - Infectious Disease History Infectious Disease History: Reports: Chicken Pox - Past Surgical History HEENT Surgical History: Reports: Oral Surgery Respiratory Surgical History: Reports: None Female Surgical History: Reports: None Social & Family History - Family History Family Medical History: Noncontributory Cardiac: Reports: Hypertension Respiratory: Reports: Asthma GI: Reports: None Endocrine/Metabolic: Reports: Diabetes, Type I Oncologic: Reports: Brain - Tobacco Use Smoking Status *Q: Never Smoker Second Hand Smoke Exposure: No - Caffeine Use Caffeine Use: Reports: None - Recreational Drug Use Recreational Drug Use: No - Living Situation & Occupation Living situation: Reports: Single, with Family Occupation: Unemployed H&P Review of Systems - Review of Systems: Review Of Systems: See Below General: Reports: Malaise, Weakness, Decreased Appetite HEENT: Reports: Sinus Congestion Pulmonary: Reports: Shortness of Breath, Wheezing Cardiovascular: Reports: No Symptoms Gastrointestinal: Reports: No Symptoms Genitourinary: Reports: No Symptoms Musculoskeletal: Reports: No Symptoms Skin: Reports: No Symptoms Psychiatric: Reports: Mood Lability, Anxiety Neurological: Reports: No Symptoms Hematologic/Lymphatic: Reports: No Symptoms Immunologic: Reports: No Symptoms Exam - Exam Exam: See Below - Vital Signs Vital Signs: Last Vital Signs Temp 36.6 C 10/26/17 18:30 Pulse 128 H 10/26/17 18:30 Resp 26 H 10/26/17 18:30 BP 116/65 10/26/17 18:30 Pulse Ox 98 10/26/17 18:30 Weight: 77.156 kg - Exam Quality Assessment: Supplemental Oxygen General: Alert, Oriented, Cooperative, Mild Distress HEENT: EOMI, Nares Patent, Normal Nasal Septum, Pupils Equal, Pupils Reactive, PERRLA Neck: Trachea Midline Lungs: Normal Respiratory Effort, Decreased Breath Sounds, Rhonchi, Wheezing Cardiovascular: Regular Rate, Tachycardia GI/Abdominal Exam: Normal Bowel Sounds, Soft, Non-Tender, No Organomegaly, No Distention (Female) Exam: Deferred Rectal (Female) Exam: Deferred Back Exam: Normal Inspection Extremities: Normal Inspection, Slow Capillary Refill Skin: Warm Neurological: Cranial Nerves Intact Neuro Extensive - Mental Status: Alert, Oriented x3 Neuro Extensive - Motor, Sensory, Reflexes: CN II-XII Intact Psychiatric: Alert, Anxious - Patient Data Lab Results Last 24 hrs: Laboratory Results - last 24 hr 10/26/17 10/26/17 10/26/17 Range/Units 12:17 12:17 12:17 WBC 12.03 H (3.98-10.04) K/mm3 RBC 5.56 H (3.98-5.22) M/mm3 Hgb 14.9 (11.2-15.7) gm/L Hct 44.7 (34.1-44.9) % MCV 80.4 (79.4-94.8) fl MCH 26.8 (25.6-32.2) pg MCHC 33.3 (32.2-35.5) g/dl RDW Std Deviation 41.4 (36.4-46.3) fL Plt Count 396 H (182-369) K/mm3 MPV 9.5 (9.4-12.3) fl Neutrophils % (Manual) 73 H (40-60) % Band Neutrophils % 1 (0-10) % Lymphocytes % (Manual) 20 (20-40) % Atypical Lymphs % 0 % Monocytes % (Manual) 2 (2-10) % Eosinophils % (Manual) 4 (0.7-5.8) % Basophils % (Manual) 0 L (0.1-1.2) Platelet Estimate Adequate RBC Morph Comment Normal D-Dimer, Quantitative 0.21 (0.19-0.50) mg/L Sodium 143 (136-145) mEq/L Potassium 4.7 (3.5-5.1) mEq/L Chloride 107 (98-107) mEq/L Carbon Dioxide 24 (21-32) mEq/L Anion Gap 16.7 H (5-15) BUN 6 L (7-18) mg/dL Creatinine 0.8 (0.55-1.02) mg/dL Est Cr Clr Drug Dosing 90.47 mL/min Estimated GFR (MDRD) > 60 (>60) mL/min BUN/Creatinine Ratio 7.5 L (14-18) Glucose 110 H (74-106) mg/dL Lactic Acid (0.4-2.0) mmol/L Calcium 9.0 (8.5-10.1) mg/dL Total Bilirubin 0.3 (0.2-1.0) mg/dL AST 21 (15-37) U/L ALT 40 (14-59) U/L Alkaline Phosphatase 100 (46-116) U/L C-Reactive Protein 3.8 H* (<1.0) mg/dL Total Protein 8.4 H (6.4-8.2) g/dl Albumin 4.0 (3.4-5.0) g/dl Globulin 4.4 gm/dL Albumin/Globulin Ratio 0.9 L (1-2) TSH 3rd Generation (0.358-3.74) uIU/mL HCG, Qual (NEGATIVE) Urine Color (Yellow) Urine Appearance (Clear) Urine pH (5.0-8.0) Ur Specific [place] (1.005-1.030) Urine Protein (Negative) Urine Glucose (UA) (Negative) Urine Ketones (Negative) Urine Occult Blood (Negative) Urine Nitrite (Negative) Urine Bilirubin (Negative) Urine Urobilinogen (0.2-1.0) Ur Leukocyte Esterase (Negative) Urine RBC (0-5) /hpf Urine WBC (0-5) /hpf Ur Epithelial Cells (0-5) /hpf Urine Bacteria (FEW) /hpf Urine Mucus (FEW) /hpf Urine Opiates Screen (NEGATIVE) Ur Buprenorphine Scrn (NEGATIVE) Ur Oxycodone Screen (NEGATIVE) Urine Methadone Screen (NEGATIVE) Ur Propoxyphene Screen (NEGATIVE) Ur Barbiturates Screen (NEGATIVE) Ur Tricyclics Screen (NEGATIVE) Ur Phencyclidine Scrn (NEGATIVE) Ur Amphetamine Screen (NEGATIVE) U Methamphetamines Scrn (NEGATIVE) U Benzodiazepines Scrn (NEGATIVE) U Cocaine Metab Screen (NEGATIVE) U Marijuana (THC) Screen (NEGATIVE) Mycoplasma pneumon IgM (NEGATIVE) 10/26/17 10/26/17 10/26/17 Range/Units 12:17 12:17 12:17 WBC (3.98-10.04) K/mm3 RBC (3.98-5.22) M/mm3 Hgb (11.2-15.7) gm/L Hct (34.1-44.9) % MCV (79.4-94.8) fl MCH (25.6-32.2) pg MCHC (32.2-35.5) g/dl RDW Std Deviation (36.4-46.3) fL Plt Count (182-369) K/mm3 MPV (9.4-12.3) fl Neutrophils % (Manual) (40-60) % Band Neutrophils % (0-10) % Lymphocytes % (Manual) (20-40) % Atypical Lymphs % % Monocytes % (Manual) (2-10) % Eosinophils % (Manual) (0.7-5.8) % Basophils % (Manual) (0.1-1.2) Platelet Estimate RBC Morph Comment D-Dimer, Quantitative (0.19-0.50) mg/L Sodium (136-145) mEq/L Potassium (3.5-5.1) mEq/L Chloride (98-107) mEq/L Carbon Dioxide (21-32) mEq/L Anion Gap (5-15) BUN (7-18) mg/dL Creatinine (0.55-1.02) mg/dL Est Cr Clr Drug Dosing mL/min Estimated GFR (MDRD) (>60) mL/min BUN/Creatinine Ratio (14-18) Glucose (74-106) mg/dL Lactic Acid (0.4-2.0) mmol/L Calcium (8.5-10.1) mg/dL Total Bilirubin (0.2-1.0) mg/dL AST (15-37) U/L ALT (14-59) U/L Alkaline Phosphatase (46-116) U/L C-Reactive Protein (<1.0) mg/dL Total Protein (6.4-8.2) g/dl Albumin (3.4-5.0) g/dl Globulin gm/dL Albumin/Globulin Ratio (1-2) TSH 3rd Generation 1.127 (0.358-3.74) uIU/mL HCG, Qual Negative (NEGATIVE) Urine Color (Yellow) Urine Appearance (Clear) Urine pH (5.0-8.0) Ur Specific [place] (1.005-1.030) Urine Protein (Negative) Urine Glucose (UA) (Negative) Urine Ketones (Negative) Urine Occult Blood (Negative) Urine Nitrite (Negative) Urine Bilirubin (Negative) Urine Urobilinogen (0.2-1.0) Ur Leukocyte Esterase (Negative) Urine RBC (0-5) /hpf Urine WBC (0-5) /hpf Ur Epithelial Cells (0-5) /hpf Urine Bacteria (FEW) /hpf Urine Mucus (FEW) /hpf Urine Opiates Screen (NEGATIVE) Ur Buprenorphine Scrn (NEGATIVE) Ur Oxycodone Screen (NEGATIVE) Urine Methadone Screen (NEGATIVE) Ur Propoxyphene Screen (NEGATIVE) Ur Barbiturates Screen (NEGATIVE) Ur Tricyclics Screen (NEGATIVE) Ur Phencyclidine Scrn (NEGATIVE) Ur Amphetamine Screen (NEGATIVE) U Methamphetamines Scrn (NEGATIVE) U Benzodiazepines Scrn (NEGATIVE) U Cocaine Metab Screen (NEGATIVE) U Marijuana (THC) Screen (NEGATIVE) Mycoplasma pneumon IgM Negative (NEGATIVE) 10/26/17 10/26/17 10/26/17 Range/Units 14:53 14:53 15:56 WBC (3.98-10.04) K/mm3 RBC (3.98-5.22) M/mm3 Hgb (11.2-15.7) gm/L Hct (34.1-44.9) % MCV (79.4-94.8) fl MCH (25.6-32.2) pg MCHC (32.2-35.5) g/dl RDW Std Deviation (36.4-46.3) fL Plt Count (182-369) K/mm3 MPV (9.4-12.3) fl Neutrophils % (Manual) (40-60) % Band Neutrophils % (0-10) % Lymphocytes % (Manual) (20-40) % Atypical Lymphs % % Monocytes % (Manual) (2-10) % Eosinophils % (Manual) (0.7-5.8) % Basophils % (Manual) (0.1-1.2) Platelet Estimate RBC Morph Comment D-Dimer, Quantitative (0.19-0.50) mg/L Sodium (136-145) mEq/L Potassium (3.5-5.1) mEq/L Chloride (98-107) mEq/L Carbon Dioxide (21-32) mEq/L Anion Gap (5-15) BUN (7-18) mg/dL Creatinine (0.55-1.02) mg/dL Est Cr Clr Drug Dosing mL/min Estimated GFR (MDRD) (>60) mL/min BUN/Creatinine Ratio (14-18) Glucose (74-106) mg/dL Lactic Acid 1.3 (0.4-2.0) mmol/L Calcium (8.5-10.1) mg/dL Total Bilirubin (0.2-1.0) mg/dL AST (15-37) U/L ALT (14-59) U/L Alkaline Phosphatase (46-116) U/L C-Reactive Protein (<1.0) mg/dL Total Protein (6.4-8.2) g/dl Albumin (3.4-5.0) g/dl Globulin gm/dL Albumin/Globulin Ratio (1-2) TSH 3rd Generation (0.358-3.74) uIU/mL HCG, Qual (NEGATIVE) Urine Color Yellow (Yellow) Urine Appearance Clear (Clear) Urine pH 6.0 (5.0-8.0) Ur Specific [place] 1.020 (1.005-1.030) Urine Protein Negative (Negative) Urine Glucose (UA) Negative (Negative) Urine Ketones Negative (Negative) Urine Occult Blood Trace-intact H (Negative) Urine Nitrite Negative (Negative) Urine Bilirubin Negative (Negative) Urine Urobilinogen 0.2 (0.2-1.0) Ur Leukocyte Esterase Negative (Negative) Urine RBC 0-5 (0-5) /hpf Urine WBC 0-5 (0-5) /hpf Ur Epithelial Cells 0-5 (0-5) /hpf Urine Bacteria Rare (FEW) /hpf Urine Mucus Not seen (FEW) /hpf Urine Opiates Screen Negative (NEGATIVE) Ur Buprenorphine Scrn Negative (NEGATIVE) Ur Oxycodone Screen Negative (NEGATIVE) Urine Methadone Screen Negative (NEGATIVE) Ur Propoxyphene Screen Negative (NEGATIVE) Ur Barbiturates Screen Negative (NEGATIVE) Ur Tricyclics Screen Negative (NEGATIVE) Ur Phencyclidine Scrn Negative (NEGATIVE) Ur Amphetamine Screen Negative (NEGATIVE) U Methamphetamines Scrn Negative (NEGATIVE) U Benzodiazepines Scrn Negative (NEGATIVE) U Cocaine Metab Screen Negative (NEGATIVE) U Marijuana (THC) Screen Negative (NEGATIVE) Mycoplasma pneumon IgM (NEGATIVE) Result Diagrams: 10/27/17 05:30 10/27/17 05:30 - Problem List (1) Exacerbation of asthma SNOMED Code(s): 334537848 ICD Code: J45.901 - UNSPECIFIED ASTHMA WITH (ACUTE) EXACERBATION Status: Acute Current Visit: Yes Qualifiers: Asthma severity: moderate Asthma persistence: persistent Qualified Code(s ): J45.41 - Moderate persistent asthma with (acute) exacerbation (2) Pneumonia SNOMED Code(s): 909359488 ICD Code: J18.9 - PNEUMONIA, UNSPECIFIED ORGANISM Status: Acute Current Visit: No Qualifiers: Pneumonia type: due to unspecified organism Laterality: right Lung location: lower lobe of lung Qualified Code(s): J18.1 - Lobar pneumonia, unspecified organism Problem List Initiated/Reviewed/Updated: Yes Orders Last 24hrs: Active Orders 24 hr Category Date Time Status Patient Status [ADT] Routine ADT 10/26/17 18:18 Active EKG Documentation Completion [RC] STAT Care 10/26/17 11:16 Active POCTesting [POC Labs] [RC] ASDIRECTED Care 10/26/17 19:07 Ordered RT Aerosol Therapy [RC] ASDIRECTED Care 10/26/17 12:33 Active RT Aerosol Therapy [RC] ASDIRECTED Care 10/26/17 15:09 Active RT Aerosol Therapy [RC] ASDIRECTED Care 10/26/17 18:06 Active RT Aerosol Therapy [RC] ASDIRECTED Care 10/26/17 19:03 Ordered RT Peak Flow Measurement [RC] ASDIRECTED Care 10/26/17 19:06 Ordered CXR [Chest 2V] [CR] Routine Exams 10/28/17 10:00 Ordered BMP [BASIC METABOLIC PANEL,BMP] [CHEM] DAILY Lab 10/27/17 05:00 Ordered BMP [BASIC METABOLIC PANEL,BMP] [CHEM] DAILY Lab 10/28/17 05:00 Ordered BMP [BASIC METABOLIC PANEL,BMP] [CHEM] DAILY Lab 10/29/17 05:00 Ordered BMP [BASIC METABOLIC PANEL,BMP] [CHEM] DAILY Lab 10/30/17 05:00 Ordered CBC WITH AUTO DIFF [HEME] DAILY Lab 10/27/17 05:00 Ordered CBC WITH AUTO DIFF [HEME] DAILY Lab 10/28/17 05:00 Ordered CBC WITH AUTO DIFF [HEME] DAILY Lab 10/29/17 05:00 Ordered CBC WITH AUTO DIFF [HEME] DAILY Lab 10/30/17 05:00 Ordered CRP [C-REACTIVE PROTEIN] [CHEM] DAILY Lab 10/27/17 05:00 Ordered CRP [C-REACTIVE PROTEIN] [CHEM] DAILY Lab 10/28/17 05:00 Ordered CRP [C-REACTIVE PROTEIN] [CHEM] DAILY Lab 10/29/17 05:00 Ordered CRP [C-REACTIVE PROTEIN] [CHEM] DAILY Lab 10/30/17 05:00 Ordered CULTURE BLOOD [BC] Stat Lab 10/26/17 15:34 Ordered CULTURE BLOOD [BC] Stat Lab 10/26/17 15:56 Received CULTURE SPUTUM + SMEAR [RM] Routine Lab 10/26/17 19:10 Ordered DRUG SCREEN, URINE [URCHEM] Stat Lab 10/26/17 14:53 Ordered LACTIC ACID [CHEM] DAILY Lab 10/27/17 05:00 Ordered LACTIC ACID [CHEM] DAILY Lab 10/28/17 05:00 Ordered LACTIC ACID [CHEM] DAILY Lab 10/29/17 05:00 Ordered LACTIC ACID [CHEM] DAILY Lab 10/30/17 05:00 Ordered MAGNESIUM [CHEM] DAILY Lab 10/27/17 05:00 Ordered MAGNESIUM [CHEM] DAILY Lab 10/28/17 05:00 Ordered MAGNESIUM [CHEM] DAILY Lab 10/29/17 05:00 Ordered MAGNESIUM [CHEM] DAILY Lab 10/30/17 05:00 Ordered MISC TEST Routine Lab 10/26/17 19:14 Ordered MYCOPLASMA PNEUMONIAE IGM AB [CHEM] Routine Lab 10/27/17 05:00 Ordered STREP PNEUMONIAE ANTIGEN [MREF] Routine Lab 10/26/17 19:11 Ordered Acetaminophen [Tylenol] Med 10/26/17 19:05 Ordered 650 mg PO Q6H PRN Albuterol [Proventil Neb Soln] Med 10/26/17 19:03 Ordered 2.5 mg NEB Q2H PRN Albuterol/Ipratropium [DuoNeb 3.0-0.5 MG/3 ML] Med 10/26/17 20:00 Ordered 3 ml NEB QID Azithromycin [Zithromax] 500 mg Med 10/26/17 19:00 Active Sodium Chloride 0.9% [Normal Saline] 250 ml IV Q24H Enoxaparin [Lovenox] Med 10/26/17 19:15 Ordered 40 mg SUBCUT Q24H Montelukast [Singulair] Med 10/26/17 21:00 Ordered 10 mg PO BEDTIME Temazepam [Restoril] Med 10/26/17 19:15 Ordered 7.5 mg PO BEDTIME PRN cefTRIAXone [Rocephin] 2 gm Med 10/26/17 22:00 Ordered Sodium Chloride 0.9% [Normal Saline] 100 ml IV Q24H methylPREDNISolone Sod Succ [Solu-MEDROL] Med 10/26/17 19:15 Ordered 125 mg IVPUSH Q6H Blood Culture x2 Reflex Set [OM.PC] Stat Oth 10/26/17 15:34 Ordered Isolation [COMM] Routine Oth 10/26/17 19:14 Ordered Medication Orders Acetaminophen (Tylenol) 650 mg PO Q6H PRN PRN Reason: Pain/Fever Albuterol (Proventil Neb Soln) 2.5 mg NEB Q2H PRN PRN Reason: Shortness of Breath Albuterol/Ipratropium (Duoneb 3.0-0.5 Mg/3 Ml) 3 ml NEB QID GISSELL Enoxaparin Sodium (Lovenox) 40 mg SUBCUT BEDTIME GISSELL Ceftriaxone Sodium 2 gm/ (Sodium Chloride) 100 mls @ 200 mls/hr IV Q24H GISSELL Azithromycin 500 mg/ Sodium (Chloride) 250 mls @ 250 mls/hr IV Q24H GISSELL Methylprednisolone Sodium Succinate (Solu-Medrol) 125 mg IVPUSH Q6H GISSELL Montelukast Sodium (Singulair) 10 mg PO BEDTIME GISSELL Temazepam (Restoril) 7.5 mg PO BEDTIME PRN PRN Reason: Insomnia Assessment/Plan Comment:: Impression: Nonsmoker with cute exacerbation of Asthma; respiratory distress with hypoxia Query CAP Nonsmoker Over weight, BMI 30.1 Plan: ICU, keep O2 sat>92% Nebs scheduled and prn IV steroids Peak Flow meter pre/post O2, keep sat>92% Zithromax/Rocephin-empiric treatment, PNA Daily labs Home meds CXR, 2 view DVT/GI prophylaxis Consult SHAISTA re: young children
[2017-10-26] MEDS: Azithromycin 500 MG in Sodium Chloride 0.9% 250 ML IV SCH (20:03)
[2017-10-26] MEDS: Albuterol/Ipratropium 3.0-0.5 MG/3 ML Neb Soln NEB SCH ×2 (20:34→21:27)
[2017-10-26] MEDS: methylPREDNISolone Sodium Succinate 125 MG/2 ML SDV IVPUSH SCH (21:47)
[2017-10-26] MEDS: Enoxaparin 40 MG/0.4 ML Syringe SUBCUT SCH (21:49)
[2017-10-26] MEDS: Montelukast 10 MG Tab PO SCH (21:49)
[2017-10-26] MEDS: Benzonatate 100 MG Cap PO SCH (21:59)
[2017-10-26] MEDS ORDERED: cefTRIAXone 2 GM in Sodium Chloride 0.9% 100 ML IV SCH (22:00)
[2017-10-26] MEDS ORDERED: cefTRIAXone 1 GM in Sodium Chloride 0.9% 100 ML IV SCH (22:00)
[2017-10-26] MEDS: cefTRIAXone 2 GM in Sodium Chloride 0.9% 100 ML IV SCH (22:00)
[2017-10-26] MEDS: guaiFENesin/Dextromethorphan 100-10 MG/5 ML Soln 5 ML Cup PO PRN (22:00)
[2017-10-26] MEDS: Albuterol 0.083% 2.5 MG/3 ML Neb Soln NEB PRN (22:44)
[2017-10-27] MEDS: Albuterol 0.083% 2.5 MG/3 ML Neb Soln NEB PRN (02:30)
[2017-10-27] MEDS: methylPREDNISolone Sodium Succinate 125 MG/2 ML SDV IVPUSH SCH ×4 (03:33→21:43)
[2017-10-27] MEDS: guaiFENesin/Dextromethorphan 100-10 MG/5 ML Soln 5 ML Cup PO PRN (05:01)
[2017-10-27] MEDS: Albuterol/Ipratropium 3.0-0.5 MG/3 ML Neb Soln NEB SCH ×4 (05:09→20:56)
[2017-10-27] MEDS: Benzonatate 100 MG Cap PO SCH ×3 (09:06→20:38)
[2017-10-27] MEDS ORDERED: Magnesium Sulfate/Water 4 GM in Premix Bag 1 BAG IV ONE (10:02)
[2017-10-27] MEDS ORDERED: Lactated Ringers 1,000 ML IV SCH (10:15)
--- NOTE | 2017-10-27 14:03 | PCM.PN ---
- General Info Date of Service: 10/27/17 Functional Status: Reports: Tolerating Diet (advanced diet as tolerated) - Review of Systems General: Reports: No Symptoms HEENT: Reports: No Symptoms Pulmonary: Reports: Shortness of Breath (decreased), Pleuritic Chest Pain, Cough , Sputum Cardiovascular: Reports: No Symptoms Gastrointestinal: Reports: No Symptoms Genitourinary: Reports: No Symptoms Musculoskeletal: Reports: No Symptoms Skin: Reports: No Symptoms Neurological: Reports: No Symptoms Psychiatric: Reports: No Symptoms - Patient Data Vitals - Most Recent: Last Vital Signs Temp 37.1 C 10/27/17 12:00 Pulse 92 10/27/17 08:03 Resp 15 10/27/17 12:00 BP 110/66 10/27/17 12:00 Pulse Ox 93 L 10/27/17 09:40 Weight - Most Recent: 77.156 kg I&O - Last 24 Hours: Intake & Output 10/26/17 10/27/17 10/27/17 22:59 06:59 14:59 Intake Total 248 897 500 Output Total 850 600 Balance 248 47 -100 Lab Results Last 24 Hours: Laboratory Results - last 24 hr 10/26/17 10/26/17 10/26/17 Range/Units 12:17 14:53 14:53 WBC (3.98-10.04) K/mm3 RBC (3.98-5.22) M/mm3 Hgb (11.2-15.7) gm/L Hct (34.1-44.9) % MCV (79.4-94.8) fl MCH (25.6-32.2) pg MCHC (32.2-35.5) g/dl RDW Std Deviation (36.4-46.3) fL Plt Count (182-369) K/mm3 MPV (9.4-12.3) fl Neut % (Auto) (34.0-71.1) % Lymph % (Auto) (19.3-51.7) % [place] % (Auto) (4.7-12.5) % Eos % (Auto) (0.7-5.8) Baso % (Auto) (0.1-1.2) % Neut # (Auto) (1.56-6.13) K/mm3 Lymph # (Auto) (1.18-3.74) K/mm3 [place] # (Auto) (0.24-0.36) K/mm3 Eos # (Auto) (0.04-0.36) K/mm3 Baso # (Auto) (0.01-0.08) K/mm3 Manual Slide Review Sodium (136-145) mEq/L Potassium (3.5-5.1) mEq/L Chloride (98-107) mEq/L Carbon Dioxide (21-32) mEq/L Anion Gap (5-15) BUN (7-18) mg/dL Creatinine (0.55-1.02) mg/dL Est Cr Clr Drug Dosing mL/min Estimated GFR (MDRD) (>60) mL/min BUN/Creatinine Ratio (14-18) Glucose (74-106) mg/dL Lactic Acid (0.4-2.0) mmol/L Calcium (8.5-10.1) mg/dL Magnesium (1.8-2.4) mg/dl C-Reactive Protein (<1.0) mg/dL Urine Color Yellow (Yellow) Urine Appearance Clear (Clear) Urine pH 6.0 (5.0-8.0) Ur Specific [place] 1.020 (1.005-1.030) Urine Protein Negative (Negative) Urine Glucose (UA) Negative (Negative) Urine Ketones Negative (Negative) Urine Occult Blood Trace-intact H (Negative) Urine Nitrite Negative (Negative) Urine Bilirubin Negative (Negative) Urine Urobilinogen 0.2 (0.2-1.0) Ur Leukocyte Esterase Negative (Negative) Urine RBC 0-5 (0-5) /hpf Urine WBC 0-5 (0-5) /hpf Ur Epithelial Cells 0-5 (0-5) /hpf Urine Bacteria Rare (FEW) /hpf Urine Mucus Not seen (FEW) /hpf Urine Opiates Screen Negative (NEGATIVE) Ur Buprenorphine Scrn Negative (NEGATIVE) Ur Oxycodone Screen Negative (NEGATIVE) Urine Methadone Screen Negative (NEGATIVE) Ur Propoxyphene Screen Negative (NEGATIVE) Ur Barbiturates Screen Negative (NEGATIVE) Ur Tricyclics Screen Negative (NEGATIVE) Ur Phencyclidine Scrn Negative (NEGATIVE) Ur Amphetamine Screen Negative (NEGATIVE) U Methamphetamines Scrn Negative (NEGATIVE) U Benzodiazepines Scrn Negative (NEGATIVE) U Cocaine Metab Screen Negative (NEGATIVE) U Marijuana (THC) Screen Negative (NEGATIVE) Mycoplasma pneumon IgM Negative (NEGATIVE) 10/26/17 10/27/17 10/27/17 Range/Units 15:56 05:30 05:30 WBC 10.72 H (3.98-10.04) K/mm3 RBC 4.94 (3.98-5.22) M/mm3 Hgb 13.6 (11.2-15.7) gm/L Hct 40.2 (34.1-44.9) % MCV 81.4 (79.4-94.8) fl MCH 27.5 (25.6-32.2) pg MCHC 33.8 (32.2-35.5) g/dl RDW Std Deviation 42.2 (36.4-46.3) fL Plt Count 369 (182-369) K/mm3 MPV 9.6 (9.4-12.3) fl Neut % (Auto) 88.8 H (34.0-71.1) % Lymph % (Auto) 10.4 L (19.3-51.7) % [place] % (Auto) 0.6 L (4.7-12.5) % Eos % (Auto) 0 L (0.7-5.8) Baso % (Auto) 0.0 L (0.1-1.2) % Neut # (Auto) 9.53 H (1.56-6.13) K/mm3 Lymph # (Auto) 1.11 L (1.18-3.74) K/mm3 [place] # (Auto) 0.06 L (0.24-0.36) K/mm3 Eos # (Auto) 0.00 L (0.04-0.36) K/mm3 Baso # (Auto) 0.00 L (0.01-0.08) K/mm3 Manual Slide Review Normal smear Sodium 140 (136-145) mEq/L Potassium 3.7 (3.5-5.1) mEq/L Chloride 106 (98-107) mEq/L Carbon Dioxide 19 L (21-32) mEq/L Anion Gap 18.7 H (5-15) BUN 7 (7-18) mg/dL Creatinine 0.8 (0.55-1.02) mg/dL Est Cr Clr Drug Dosing 90.47 mL/min Estimated GFR (MDRD) > 60 (>60) mL/min BUN/Creatinine Ratio 8.8 L (14-18) Glucose 180 H (74-106) mg/dL Lactic Acid 1.3 (0.4-2.0) mmol/L Calcium 8.8 (8.5-10.1) mg/dL Magnesium 1.6 L (1.8-2.4) mg/dl C-Reactive Protein 7.4 H* (<1.0) mg/dL Urine Color (Yellow) Urine Appearance (Clear) Urine pH (5.0-8.0) Ur Specific [place] (1.005-1.030) Urine Protein (Negative) Urine Glucose (UA) (Negative) Urine Ketones (Negative) Urine Occult Blood (Negative) Urine Nitrite (Negative) Urine Bilirubin (Negative) Urine Urobilinogen (0.2-1.0) Ur Leukocyte Esterase (Negative) Urine RBC (0-5) /hpf Urine WBC (0-5) /hpf Ur Epithelial Cells (0-5) /hpf Urine Bacteria (FEW) /hpf Urine Mucus (FEW) /hpf Urine Opiates Screen (NEGATIVE) Ur Buprenorphine Scrn (NEGATIVE) Ur Oxycodone Screen (NEGATIVE) Urine Methadone Screen (NEGATIVE) Ur Propoxyphene Screen (NEGATIVE) Ur Barbiturates Screen (NEGATIVE) Ur Tricyclics Screen (NEGATIVE) Ur Phencyclidine Scrn (NEGATIVE) Ur Amphetamine Screen (NEGATIVE) U Methamphetamines Scrn (NEGATIVE) U Benzodiazepines Scrn (NEGATIVE) U Cocaine Metab Screen (NEGATIVE) U Marijuana (THC) Screen (NEGATIVE) Mycoplasma pneumon IgM Negative (NEGATIVE) 10/27/17 Range/Units 05:30 WBC (3.98-10.04) K/mm3 RBC (3.98-5.22) M/mm3 Hgb (11.2-15.7) gm/L Hct (34.1-44.9) % MCV (79.4-94.8) fl MCH (25.6-32.2) pg MCHC (32.2-35.5) g/dl RDW Std Deviation (36.4-46.3) fL Plt Count (182-369) K/mm3 MPV (9.4-12.3) fl Neut % (Auto) (34.0-71.1) % Lymph % (Auto) (19.3-51.7) % [place] % (Auto) (4.7-12.5) % Eos % (Auto) (0.7-5.8) Baso % (Auto) (0.1-1.2) % Neut # (Auto) (1.56-6.13) K/mm3 Lymph # (Auto) (1.18-3.74) K/mm3 [place] # (Auto) (0.24-0.36) K/mm3 Eos # (Auto) (0.04-0.36) K/mm3 Baso # (Auto) (0.01-0.08) K/mm3 Manual Slide Review Sodium (136-145) mEq/L Potassium (3.5-5.1) mEq/L Chloride (98-107) mEq/L Carbon Dioxide (21-32) mEq/L Anion Gap (5-15) BUN (7-18) mg/dL Creatinine (0.55-1.02) mg/dL Est Cr Clr Drug Dosing mL/min Estimated GFR (MDRD) (>60) mL/min BUN/Creatinine Ratio (14-18) Glucose (74-106) mg/dL Lactic Acid 2.8 H (0.4-2.0) mmol/L Calcium (8.5-10.1) mg/dL Magnesium (1.8-2.4) mg/dl C-Reactive Protein (<1.0) mg/dL Urine Color (Yellow) Urine Appearance (Clear) Urine pH (5.0-8.0) Ur Specific [place] (1.005-1.030) Urine Protein (Negative) Urine Glucose (UA) (Negative) Urine Ketones (Negative) Urine Occult Blood (Negative) Urine Nitrite (Negative) Urine Bilirubin (Negative) Urine Urobilinogen (0.2-1.0) Ur Leukocyte Esterase (Negative) Urine RBC (0-5) /hpf Urine WBC (0-5) /hpf Ur Epithelial Cells (0-5) /hpf Urine Bacteria (FEW) /hpf Urine Mucus (FEW) /hpf Urine Opiates Screen (NEGATIVE) Ur Buprenorphine Scrn (NEGATIVE) Ur Oxycodone Screen (NEGATIVE) Urine Methadone Screen (NEGATIVE) Ur Propoxyphene Screen (NEGATIVE) Ur Barbiturates Screen (NEGATIVE) Ur Tricyclics Screen (NEGATIVE) Ur Phencyclidine Scrn (NEGATIVE) Ur Amphetamine Screen (NEGATIVE) U Methamphetamines Scrn (NEGATIVE) U Benzodiazepines Scrn (NEGATIVE) U Cocaine Metab Screen (NEGATIVE) U Marijuana (THC) Screen (NEGATIVE) Mycoplasma pneumon IgM (NEGATIVE) Vitaliy Results Last 24 Hours: Microbiology 10/27/17 13:13 Group A Streptococcus Rapid Screen - Final Throat NEGATIVE STREP A SCREEN 10/26/17 18:29 Gram Stain - Final Sputum - Expectorated Sputum Culture - Preliminary Med Orders - Current: Current Medications Acetaminophen (Tylenol) 650 mg PO Q6H PRN PRN Reason: Pain/Fever Albuterol (Proventil Neb Soln) 2.5 mg NEB Q2H PRN PRN Reason: Shortness of Breath Last Admin: 10/27/17 02:30 Dose: 2.5 mg Albuterol/Ipratropium (Duoneb 3.0-0.5 Mg/3 Ml) 3 ml NEB QIDRT [facility] Last Admin: 10/27/17 09:39 Dose: 3 ml Benzonatate (Tessalon Perles) 200 mg PO TID [facility] Last Admin: 10/27/17 09:06 Dose: 200 mg Enoxaparin Sodium (Lovenox) 40 mg SUBCUT BEDTIME [facility] Last Admin: 10/26/17 21:49 Dose: 40 mg Guaifenesin/Phenylephrine HCl (Robitussin Dm) 10 ml PO Q6H PRN PRN Reason: Cough Last Admin: 10/27/17 05:01 Dose: 10 ml Azithromycin 500 mg/ Sodium (Chloride) 250 mls @ 250 mls/hr IV Q24H [facility] Last Admin: 10/26/17 20:03 Dose: 250 mls/hr Ceftriaxone Sodium 2 gm/ (Sodium Chloride) 100 mls @ 100 mls/hr IV Q24H [facility] Last Admin: 10/26/17 22:00 Dose: 100 mls/hr Lactated Ringer's (Ringers, Lactated) 1,000 mls @ 150 mls/hr IV ASDIRECTED [facility] Stop: 10/27/17 16:15 Last Admin: 10/27/17 10:37 Dose: 150 mls/hr Methylprednisolone Sodium Succinate (Solu-Medrol) 125 mg IVPUSH Q6H [facility] Last Admin: 10/27/17 09:06 Dose: 125 mg Montelukast Sodium (Singulair) 10 mg PO BEDTIME [facility] Last Admin: 10/26/17 21:49 Dose: 10 mg Temazepam (Restoril) 7.5 mg PO BEDTIME PRN PRN Reason: Insomnia Discontinued Medications Acetaminophen (Tylenol) 975 mg PO NOW ONE Stop: 10/26/17 17:43 Last Admin: 10/26/17 18:07 Dose: 975 mg Albuterol (Proventil Neb Soln) 2.5 mg NEB ONETIME ONE Stop: 10/26/17 15:10 Last Admin: 10/26/17 15:41 Dose: 2.5 mg Albuterol (Proventil Neb Soln) 2.5 mg NEB ONETIME ONE Stop: 10/26/17 18:07 Last Admin: 10/26/17 18:32 Dose: 2.5 mg Albuterol (Proventil Neb Soln) 2.5 mg NEB ONETIME ONE Stop: 10/26/17 18:07 Last Admin: 10/26/17 19:31 Dose: Not Given Albuterol/Ipratropium (Duoneb 3.0-0.5 Mg/3 Ml) 3 ml NEB ONETIME ONE Stop: 10/26/17 11:43 Last Admin: 10/26/17 12:18 Dose: 3 ml Albuterol/Ipratropium (Duoneb 3.0-0.5 Mg/3 Ml) 3 ml NEB ONETIME ONE Stop: 10/26/17 12:33 Last Admin: 10/26/17 12:47 Dose: 3 ml Albuterol/Ipratropium (Duoneb 3.0-0.5 Mg/3 Ml) 3 ml NEB QID [facility] Last Admin: 10/26/17 21:27 Dose: Not Given Sodium Chloride (Normal Saline) 1,000 mls @ 999 mls/hr IV ONETIME ONE Stop: 10/26/17 13:33 Last Admin: 10/26/17 12:50 Dose: 999 mls/hr Sodium Chloride (Normal Saline) 1,000 mls @ 999 mls/hr IV ONETIME ONE Stop: 10/26/17 16:34 Last Admin: 10/26/17 15:40 Dose: 999 mls/hr Ceftriaxone Sodium 2 gm/ (Sodium Chloride) 100 mls @ 200 mls/hr IV Q24H [facility] Magnesium Sulfate 4 gm/ Premix 100 mls @ 300 mls/hr IV ONETIME ONE Stop: 10/27/17 10:03 Last Admin: 10/27/17 10:37 Dose: 300 mls/hr Lorazepam (Ativan) 0.5 mg IVPUSH ONETIME ONE Stop: 10/26/17 12:34 Last Admin: 10/26/17 15:48 Dose: 0.5 mg Lorazepam (Ativan) Confirm Administered Dose 2 mg .ROUTE .STK-MED ONE Stop: 10/26/17 15:49 Last Admin: 10/26/17 16:55 Dose: Not Given Methylprednisolone Sodium Succinate (Solu-Medrol) 125 mg IVPUSH ONETIME ONE Stop: 10/26/17 15:34 Last Admin: 10/26/17 15:35 Dose: 125 mg Prednisone (Prednisone) 40 mg PO ONETIME ONE Stop: 10/26/17 13:03 Last Admin: 10/26/17 16:55 Dose: Not Given - Exam Quality Assessment: Supplemental Oxygen, DVT Prophylaxis General: Alert, Oriented, Cooperative, No Acute Distress HEENT: Pupils Equal, Pupils Reactive, EOMI Neck: Trachea Midline, No JVD Lungs: Normal Respiratory Effort, Decreased Breath Sounds, Wheezing (improved) Cardiovascular: Regular Rate, Tachycardia GI/Abdominal Exam: Normal Bowel Sounds, Soft, Non-Tender, No Organomegaly, No Distention (Female) Exam: Deferred Back Exam: Normal Inspection Extremities: Normal Inspection, Normal Capillary Refill Skin: Warm Neurological: No New Focal Deficit Psy/Mental Status: Alert, Normal Affect, Normal Mood - Problem List & Annotations (1) Exacerbation of asthma SNOMED Code(s): 887120289 Code(s): J45.901 - UNSPECIFIED ASTHMA WITH (ACUTE) EXACERBATION Status: Acute Current Visit: Yes Qualifiers: Asthma severity: moderate Asthma persistence: persistent Qualified Code(s ): J45.41 - Moderate persistent asthma with (acute) exacerbation (2) Pneumonia SNOMED Code(s): 601177380 Code(s): J18.9 - PNEUMONIA, UNSPECIFIED ORGANISM Status: Acute Current Visit: No Qualifiers: Pneumonia type: due to unspecified organism Laterality: right Lung location: lower lobe of lung Qualified Code(s): J18.1 - Lobar pneumonia, unspecified organism - Problem List Review Problem List Initiated/Reviewed/Updated: Yes - My Orders Last 24 Hours: My Active Orders 10/26/17 14:53 STREP PNEUMONIAE ANTIGEN [MREF] Routine 10/26/17 18:29 CULTURE SPUTUM + SMEAR [RM] Routine 10/26/17 19:00 Azithromycin [Zithromax] 500 mg Sodium Chloride 0.9% [Normal Saline] 250 ml IV Q24H 10/26/17 19:03 RT Aerosol Therapy [RC] ASDIRECTED Albuterol [Proventil Neb Soln] 2.5 mg NEB Q2H PRN 10/26/17 19:05 Acetaminophen [Tylenol] 650 mg PO Q6H PRN 10/26/17 19:06 RT Peak Flow Measurement [RC] ASDIRECTED 10/26/17 19:07 POCTesting [POC Labs] [RC] ASDIRECTED 10/26/17 19:14 Isolation [COMM] Routine 10/26/17 19:15 Temazepam [Restoril] 7.5 mg PO BEDTIME PRN 10/26/17 19:26 MISC TEST Routine 10/26/17 20:36 Up ad Emma [RC] ASDIRECTED 10/26/17 20:48 Code Status [Resuscitation Status] Routine 10/26/17 21:00 Benzonatate [Tessalon Perles] 200 mg PO TID Enoxaparin [Lovenox] 40 mg SUBCUT BEDTIME Montelukast [Singulair] 10 mg PO BEDTIME 10/26/17 21:33 Dextromethorphan/guaiFENesin [Robitussin DM] 10 ml PO Q6H PRN 10/26/17 22:00 cefTRIAXone [Rocephin] 2 gm Sodium Chloride 0.9% [Normal Saline] 100 ml IV Q24H methylPREDNISolone Sod Succ [Solu-MEDROL] 125 mg IVPUSH Q6H 10/27/17 06:00 Albuterol/Ipratropium [DuoNeb 3.0-0.5 MG/3 ML] 3 ml NEB QIDRT 10/27/17 10:15 Lactated Ringers [Ringers, Lactated] 1,000 ml IV ASDIRECTED 10/27/17 13:13 CULTURE STREP A CONFIRMATION [RM] Routine STREP SCRN A RAPID W CULT CONF [RM] Routine 10/27/17 18:00 LACTIC ACID [CHEM] Routine 10/27/17 Lunch Regular Diet [DIET] 10/28/17 05:00 BMP [BASIC METABOLIC PANEL,BMP] [CHEM] DAILY CBC WITH AUTO DIFF [HEME] DAILY CRP [C-REACTIVE PROTEIN] [CHEM] DAILY LACTIC ACID [CHEM] DAILY MAGNESIUM [CHEM] DAILY 10/28/17 10:00 CXR [Chest 2V] [CR] Routine 10/29/17 05:00 BMP [BASIC METABOLIC PANEL,BMP] [CHEM] DAILY CBC WITH AUTO DIFF [HEME] DAILY CRP [C-REACTIVE PROTEIN] [CHEM] DAILY LACTIC ACID [CHEM] DAILY MAGNESIUM [CHEM] DAILY 10/30/17 05:00 BMP [BASIC METABOLIC PANEL,BMP] [CHEM] DAILY CBC WITH AUTO DIFF [HEME] DAILY CRP [C-REACTIVE PROTEIN] [CHEM] DAILY LACTIC ACID [CHEM] DAILY MAGNESIUM [CHEM] DAILY - Plan Plan:: Impression: Nonsmoker with cute exacerbation of Asthma; respiratory distress with hypoxia Empiric CAP treatment with Zithro/Rocephin Nonsmoker Over weight, BMI 30.1 Plan: ICU, keep O2 sat>92% Nebs scheduled and prn IV steroids Peak Flow meter pre/post O2, keep sat>92% Zithromax/Rocephin-empiric treatment, PNA Daily labs Home meds CXR, 2 view-->10/28/17 DVT/GI prophylaxis Consult SHAISTA re: young children
[2017-10-27] MEDS: Acetaminophen 325 MG Tab PO PRN (16:26)
[2017-10-27] MEDS: Azithromycin 500 MG in Sodium Chloride 0.9% 250 ML IV SCH (18:42)
[2017-10-27] MEDS: Montelukast 10 MG Tab PO SCH (20:37)
[2017-10-27] MEDS: Enoxaparin 40 MG/0.4 ML Syringe SUBCUT SCH (20:38)
[2017-10-27] MEDS: cefTRIAXone 2 GM in Sodium Chloride 0.9% 100 ML IV SCH (21:46)
[2017-10-28] MEDS: methylPREDNISolone Sodium Succinate 125 MG/2 ML SDV IVPUSH SCH ×2 (03:24→09:17)
[2017-10-28] MEDS: Albuterol 0.083% 2.5 MG/3 ML Neb Soln NEB PRN (04:16)
[2017-10-28] MEDS: Albuterol/Ipratropium 3.0-0.5 MG/3 ML Neb Soln NEB SCH ×4 (06:31→21:31)
--- NOTE | 2017-10-28 08:31 | CR ---
Chest: 2 views of the chest were obtained. Comparison: Prior chest x-ray of 10/26/17. Heart size and mediastinum are normal. Lungs are clear. Bony structures are within normal limits. Impression: 1. Nothing acute is seen on 2 view chest x-ray. Diagnostic code #1
[2017-10-28] MEDS: Benzonatate 100 MG Cap PO SCH ×3 (09:17→20:32)
[2017-10-28] MEDS ORDERED: predniSONE 20 MG Tab PO ONE (15:19)
--- NOTE | 2017-10-28 15:26 | PCM.PN ---
- General Info Date of Service: 10/28/17 Subjective Update: Patient requires an early DC tomorrow. Will need a Z pack, and prednisone 20 mg tablets taper over 8 days. Resume home meds at DC including inhalers. Functional Status: Reports: Tolerating Diet, Ambulating, Urinating - Review of Systems General: Reports: No Symptoms HEENT: Reports: No Symptoms Pulmonary: Reports: Shortness of Breath Cardiovascular: Reports: No Symptoms Gastrointestinal: Reports: No Symptoms Genitourinary: Reports: No Symptoms Musculoskeletal: Reports: No Symptoms Skin: Reports: No Symptoms Neurological: Reports: No Symptoms Psychiatric: Reports: No Symptoms - Patient Data Vitals - Most Recent: Last Vital Signs Temp 36.8 C 10/28/17 15:00 Pulse 96 10/28/17 15:00 Resp 20 10/28/17 15:00 BP 115/90 10/28/17 15:00 Pulse Ox 93 L 10/28/17 15:00 Weight - Most Recent: 76.566 kg I&O - Last 24 Hours: Intake & Output 10/28/17 10/28/17 10/28/17 06:59 14:59 22:59 Intake Total 1050 120 Balance 1050 120 Lab Results Last 24 Hours: Laboratory Results - last 24 hr 10/27/17 10/28/17 10/28/17 Range/Units 15:14 05:17 05:17 WBC 18.64 H (3.98-10.04) K/mm3 RBC 4.66 (3.98-5.22) M/mm3 Hgb 12.7 (11.2-15.7) gm/L Hct 38.3 (34.1-44.9) % MCV 82.2 (79.4-94.8) fl MCH 27.3 (25.6-32.2) pg MCHC 33.2 (32.2-35.5) g/dl RDW Std Deviation 43.5 (36.4-46.3) fL Plt Count 398 H (182-369) K/mm3 MPV 9.8 (9.4-12.3) fl Neut % (Auto) 92.6 H (34.0-71.1) % Lymph % (Auto) 5.8 L (19.3-51.7) % Jay % (Auto) 1.2 L (4.7-12.5) % Eos % (Auto) 0 L (0.7-5.8) Baso % (Auto) 0.1 (0.1-1.2) % Neut # (Auto) 17.25 H (1.56-6.13) K/mm3 Lymph # (Auto) 1.09 L (1.18-3.74) K/mm3 Jay # (Auto) 0.23 L (0.24-0.36) K/mm3 Eos # (Auto) 0.00 L (0.04-0.36) K/mm3 Baso # (Auto) 0.01 (0.01-0.08) K/mm3 Manual Slide Review Abnormal smear Sodium 140 (136-145) mEq/L Potassium 3.9 (3.5-5.1) mEq/L Chloride 106 (98-107) mEq/L Carbon Dioxide 22 (21-32) mEq/L Anion Gap 15.9 H (5-15) BUN 10 (7-18) mg/dL Creatinine 0.7 (0.55-1.02) mg/dL Est Cr Clr Drug Dosing 103.40 mL/min Estimated GFR (MDRD) > 60 (>60) mL/min BUN/Creatinine Ratio 14.3 (14-18) Glucose 162 H (74-106) mg/dL Lactic Acid 2.0 (0.4-2.0) mmol/L Calcium 8.6 (8.5-10.1) mg/dL Magnesium 1.9 (1.8-2.4) mg/dl C-Reactive Protein 3.9 H* (<1.0) mg/dL 10/28/17 Range/Units 05:17 WBC (3.98-10.04) K/mm3 RBC (3.98-5.22) M/mm3 Hgb (11.2-15.7) gm/L Hct (34.1-44.9) % MCV (79.4-94.8) fl MCH (25.6-32.2) pg MCHC (32.2-35.5) g/dl RDW Std Deviation (36.4-46.3) fL Plt Count (182-369) K/mm3 MPV (9.4-12.3) fl Neut % (Auto) (34.0-71.1) % Lymph % (Auto) (19.3-51.7) % Jay % (Auto) (4.7-12.5) % Eos % (Auto) (0.7-5.8) Baso % (Auto) (0.1-1.2) % Neut # (Auto) (1.56-6.13) K/mm3 Lymph # (Auto) (1.18-3.74) K/mm3 Jay # (Auto) (0.24-0.36) K/mm3 Eos # (Auto) (0.04-0.36) K/mm3 Baso # (Auto) (0.01-0.08) K/mm3 Manual Slide Review Sodium (136-145) mEq/L Potassium (3.5-5.1) mEq/L Chloride (98-107) mEq/L Carbon Dioxide (21-32) mEq/L Anion Gap (5-15) BUN (7-18) mg/dL Creatinine (0.55-1.02) mg/dL Est Cr Clr Drug Dosing mL/min Estimated GFR (MDRD) (>60) mL/min BUN/Creatinine Ratio (14-18) Glucose (74-106) mg/dL Lactic Acid 1.3 (0.4-2.0) mmol/L Calcium (8.5-10.1) mg/dL Magnesium (1.8-2.4) mg/dl C-Reactive Protein (<1.0) mg/dL Vitaliy Results Last 24 Hours: Microbiology 10/26/17 18:29 Gram Stain - Final Sputum - Expectorated Sputum Culture - Preliminary 10/27/17 13:13 Quick Strep Confirmation Culture - Preliminary Throat Group A Streptococcus Rapid Screen - Final NEGATIVE STREP A SCREEN 10/26/17 15:56 Aerobic Blood Culture - Preliminary Blood - Venous NO GROWTH AFTER 1 DAY Anaerobic Blood Culture - Preliminary NO GROWTH AFTER 1 DAY Med Orders - Current: Current Medications Acetaminophen (Tylenol) 650 mg PO Q6H PRN PRN Reason: Pain/Fever Last Admin: 10/27/17 16:26 Dose: 650 mg Albuterol (Proventil Neb Soln) 2.5 mg NEB Q2H PRN PRN Reason: Shortness of Breath Last Admin: 10/28/17 04:16 Dose: 2.5 mg Albuterol/Ipratropium (Duoneb 3.0-0.5 Mg/3 Ml) 3 ml NEB QIDRT [facility] Last Admin: 10/28/17 15:11 Dose: 3 ml Azithromycin (Zithromax) 250 mg PO Q24H [facility] Benzonatate (Tessalon Perles) 200 mg PO TID [facility] Last Admin: 10/28/17 09:17 Dose: 200 mg Enoxaparin Sodium (Lovenox) 40 mg SUBCUT BEDTIME [facility] Last Admin: 10/27/17 20:38 Dose: 40 mg Guaifenesin/Phenylephrine HCl (Robitussin Dm) 10 ml PO Q6H PRN PRN Reason: Cough Last Admin: 10/27/17 05:01 Dose: 10 ml Montelukast Sodium (Singulair) 10 mg PO BEDTIME [facility] Last Admin: 10/27/17 20:37 Dose: 10 mg Temazepam (Restoril) 7.5 mg PO BEDTIME PRN PRN Reason: Insomnia Discontinued Medications Acetaminophen (Tylenol) 975 mg PO NOW ONE Stop: 10/26/17 17:43 Last Admin: 10/26/17 18:07 Dose: 975 mg Albuterol (Proventil Neb Soln) 2.5 mg NEB ONETIME ONE Stop: 10/26/17 15:10 Last Admin: 10/26/17 15:41 Dose: 2.5 mg Albuterol (Proventil Neb Soln) 2.5 mg NEB ONETIME ONE Stop: 10/26/17 18:07 Last Admin: 10/26/17 18:32 Dose: 2.5 mg Albuterol (Proventil Neb Soln) 2.5 mg NEB ONETIME ONE Stop: 10/26/17 18:07 Last Admin: 10/26/17 19:31 Dose: Not Given Albuterol/Ipratropium (Duoneb 3.0-0.5 Mg/3 Ml) 3 ml NEB ONETIME ONE Stop: 10/26/17 11:43 Last Admin: 10/26/17 12:18 Dose: 3 ml Albuterol/Ipratropium (Duoneb 3.0-0.5 Mg/3 Ml) 3 ml NEB ONETIME ONE Stop: 10/26/17 12:33 Last Admin: 10/26/17 12:47 Dose: 3 ml Albuterol/Ipratropium (Duoneb 3.0-0.5 Mg/3 Ml) 3 ml NEB QID [facility] Last Admin: 10/26/17 21:27 Dose: Not Given Sodium Chloride (Normal Saline) 1,000 mls @ 999 mls/hr IV ONETIME ONE Stop: 10/26/17 13:33 Last Admin: 10/26/17 12:50 Dose: 999 mls/hr Sodium Chloride (Normal Saline) 1,000 mls @ 999 mls/hr IV ONETIME ONE Stop: 10/26/17 16:34 Last Admin: 10/26/17 15:40 Dose: 999 mls/hr Ceftriaxone Sodium 2 gm/ (Sodium Chloride) 100 mls @ 200 mls/hr IV Q24H [facility] Azithromycin 500 mg/ Sodium (Chloride) 250 mls @ 250 mls/hr IV Q24H [facility] Last Admin: 10/27/17 18:42 Dose: 250 mls/hr Ceftriaxone Sodium 2 gm/ (Sodium Chloride) 100 mls @ 100 mls/hr IV Q24H [facility] Last Admin: 10/27/17 21:46 Dose: 100 mls/hr Magnesium Sulfate 4 gm/ Premix 100 mls @ 300 mls/hr IV ONETIME ONE Stop: 10/27/17 10:03 Last Admin: 10/27/17 10:37 Dose: 300 mls/hr Lactated Ringer's (Ringers, Lactated) 1,000 mls @ 150 mls/hr IV ASDIRECTED [facility] Stop: 10/27/17 16:15 Last Admin: 10/27/17 10:37 Dose: 150 mls/hr Lorazepam (Ativan) 0.5 mg IVPUSH ONETIME ONE Stop: 10/26/17 12:34 Last Admin: 10/26/17 15:48 Dose: 0.5 mg Lorazepam (Ativan) Confirm Administered Dose 2 mg .ROUTE .STK-MED ONE Stop: 10/26/17 15:49 Last Admin: 10/26/17 16:55 Dose: Not Given Methylprednisolone Sodium Succinate (Solu-Medrol) 125 mg IVPUSH ONETIME ONE Stop: 10/26/17 15:34 Last Admin: 10/26/17 15:35 Dose: 125 mg Methylprednisolone Sodium Succinate (Solu-Medrol) 125 mg IVPUSH Q6H [facility] Last Admin: 10/28/17 09:17 Dose: 125 mg Prednisone (Prednisone) 40 mg PO ONETIME ONE Stop: 10/26/17 13:03 Last Admin: 10/26/17 16:55 Dose: Not Given - Exam Quality Assessment: DVT Prophylaxis General: Alert, Oriented, Cooperative, No Acute Distress HEENT: Pupils Equal, Pupils Reactive, EOMI Neck: Trachea Midline, No JVD Lungs: Normal Respiratory Effort, Decreased Breath Sounds, Wheezing (minimal) Cardiovascular: Regular Rate, Regular Rhythm GI/Abdominal Exam: Normal Bowel Sounds, Soft, Non-Tender, No Organomegaly, No Distention (Female) Exam: Deferred Back Exam: Normal Inspection Extremities: Normal Inspection, Non-Tender, Normal Capillary Refill Skin: Warm Neurological: No New Focal Deficit, Normal Gait, Normal Speech Psy/Mental Status: Alert, Normal Affect, Normal Mood - Problem List & Annotations (1) Exacerbation of asthma SNOMED Code(s): 750154564 Code(s): J45.901 - UNSPECIFIED ASTHMA WITH (ACUTE) EXACERBATION Status: Acute Current Visit: Yes Qualifiers: Asthma severity: moderate Asthma persistence: persistent Qualified Code(s ): J45.41 - Moderate persistent asthma with (acute) exacerbation (2) Pneumonia SNOMED Code(s): 296408309 Code(s): J18.9 - PNEUMONIA, UNSPECIFIED ORGANISM Status: Acute Current Visit: No Qualifiers: Pneumonia type: due to unspecified organism Laterality: right Lung location: lower lobe of lung Qualified Code(s): J18.1 - Lobar pneumonia, unspecified organism - Problem List Review Problem List Initiated/Reviewed/Updated: Yes - My Orders Last 24 Hours: My Active Orders 10/28/17 03:56 EKG 12 Lead [EK] Routine 10/28/17 06:00 Patient Status [ADT] Routine 10/28/17 15:19 predniSONE 20 mg PO ONETIME ONE 10/28/17 19:00 Azithromycin [Zithromax] 250 mg PO Q24H 10/29/17 05:00 BMP [BASIC METABOLIC PANEL,BMP] [CHEM] DAILY CBC WITH AUTO DIFF [HEME] DAILY CRP [C-REACTIVE PROTEIN] [CHEM] DAILY LACTIC ACID [CHEM] DAILY MAGNESIUM [CHEM] DAILY 10/30/17 05:00 BMP [BASIC METABOLIC PANEL,BMP] [CHEM] DAILY CBC WITH AUTO DIFF [HEME] DAILY CRP [C-REACTIVE PROTEIN] [CHEM] DAILY LACTIC ACID [CHEM] DAILY MAGNESIUM [CHEM] DAILY - Plan Plan:: Impression: Nonsmoker with cute exacerbation of Asthma; respiratory distress with hypoxia Empiric CAP treatment with Zithro/Rocephin Nonsmoker Over weight, BMI 30.1 Plan: MS with tele INH at DC Prednisone at DC taper over 8 days Will not need O2, confirm before DC Z pack at DC; empiric RX for PNA during hospitalization DC 10/29/17 by 0800 hour for daughter's ped appt in [place]
[2017-10-28] MEDS: Acetaminophen 325 MG Tab PO PRN (17:26)
[2017-10-28] MEDS ORDERED: Azithromycin 250 MG Tab PO SCH (19:00)
[2017-10-28] MEDS: Enoxaparin 40 MG/0.4 ML Syringe SUBCUT SCH (20:32)
[2017-10-28] MEDS: Montelukast 10 MG Tab PO SCH (20:32)
[2017-10-29 02:37] VITALS: BP 115/75
[2017-10-29] MEDS ORDERED: predniSONE 20 MG Tab PO SCH (06:00)
[2017-10-29] MEDS: Albuterol/Ipratropium 3.0-0.5 MG/3 ML Neb Soln NEB SCH (06:08)
--- NOTE | 2017-10-29 13:20 | PCM.DCSUM1 ---
Discharge Summary - Hospital Course Free Text/Narrative:: 22 year old female treated empirically for CAP, was discharged after treatment for acute respiratory distress; acute asthma exacerbation; acute bronchitis; acute anxiety attack. The patient was DCd on a steroid taper and Zithromax. She should continue her home meds as prescribed. A follow with her PCP is expected in 1-2 weeks. The CXR on 10/28/17 was WNL; the work up for PNA was negative, the patient presumptively received treatment. HPI Initial Comments: 22 year old female with asthma presents with a history of SOB, productive cough with difficulty breathing. The symptoms have been present for 24-48 hours. She had to rest frequently while trying to seek medical assistance. The patient will be admitted to the ICU with elevated resp rate and hypoxia. She is a full code. Diagnosis: Stroke: No - Discharge Data Discharge Date: 10/29/17 Discharge Disposition: Home, Self-Care 01 Condition: Good - Discharge Diagnosis/Problem(s) (1) Exacerbation of asthma SNOMED Code(s): 815375483 ICD Code: J45.901 - UNSPECIFIED ASTHMA WITH (ACUTE) EXACERBATION Status: Acute Qualifiers: Asthma severity: moderate Asthma persistence: persistent Qualified Code(s ): J45.41 - Moderate persistent asthma with (acute) exacerbation (2) Pneumonia SNOMED Code(s): 437467980 ICD Code: J18.9 - PNEUMONIA, UNSPECIFIED ORGANISM Status: Ruled-out Qualifiers: Pneumonia type: due to unspecified organism Laterality: right Lung location: lower lobe of lung Qualified Code(s): J18.1 - Lobar pneumonia, unspecified organism (3) Acute bronchitis SNOMED Code(s): 97596559 ICD Code: J20.9 - ACUTE BRONCHITIS, UNSPECIFIED Status: Acute Qualifiers: Bronchitis organism: unspecified organism Qualified Code(s): J20.9 - Acute bronchitis, unspecified - Patient Instructions Diet: Usual Diet as Tolerated Activity: As Tolerated Driving: May Drive Today Showering/Bathing: May Shower Notify Provider of: Fever, Increased Pain, Nausea and/or Vomiting - Discharge Plan *PRESCRIPTION DRUG MONITORING PROGRAM REVIEWED*: Not Applicable *COPY OF PRESCRIPTION DRUG MONITORING REPORT IN PATIENT GALDINO: Not Applicable Prescriptions/Med Rec: Azithromycin [Zithromax] 250 mg PO Q24H #5 tablet Dextromethorphan/guaiFENesin [Robitussin DM] 15 ml PO Q8H PRN #240 cup PRN Reason: Cough predniSONE 20 mg PO WITHBREAKFAST #7 tablet Home Medications: Home Meds Montelukast [Singulair] 10 mg PO BEDTIME 01/01/16 [History] Albuterol [Proventil HFA] 2 puff INH Q2H PRN #3 inhaler 01/23/17 [Rx] Albuterol/Ipratropium [DuoNeb 3.0-0.5 MG/3 ML] 3 ml NEB Q2H PRN #10 neb [Rx] Inhaler, Assist Devices [Aerochamber with Flowsignal] 1 each ASDIRECTED #1 spacer 05/12/17 [Rx] Azithromycin [Zithromax] 250 mg PO Q24H #5 tablet 10/28/17 [Rx] Dextromethorphan/guaiFENesin [Robitussin DM] 15 ml PO Q8H PRN #240 cup 10/28/17 [Rx] predniSONE 20 mg PO WITHBREAKFAST #7 tablet 10/28/17 [Rx] Forms: ED Department Discharge Referrals: Cora Hurd [employer] [Primary Care Provider] - - Discharge Summary/Plan Comment DC Time >30 min.: No Discharge Summary/Plan Comment: Impression: Nonsmoker with cute exacerbation of Asthma; respiratory distress with hypoxia Empiric CAP treatment with Zithro/Rocephin; final DX is acute bronchitis Nonsmoker Over weight, BMI 30.1 Plan: MS with tele INH at DC Prednisone at DC taper over 8 days Will not need O2, confirm before DC Z pack at DC; empiric RX for PNA during hospitalization DC 10/29/17 by 0800 hour for daughter's ped appt in [place] - [facility] Info Date of Service: 10/26/17 Functional Status: Reports: Tolerating Diet, Ambulating, Urinating - Review of Systems General: Reports: No Symptoms HEENT: Reports: No Symptoms Pulmonary: Reports: No Symptoms Cardiovascular: Reports: No Symptoms Gastrointestinal: Reports: No Symptoms Genitourinary: Reports: No Symptoms Musculoskeletal: Reports: No Symptoms Skin: Reports: No Symptoms Neurological: Reports: No Symptoms Psychiatric: Reports: No Symptoms - Patient Data Vitals - Most Recent: Last Vital Signs Temp 36.3 C 10/29/17 02:36 Pulse 55 L 10/29/17 02:36 Resp 17 10/29/17 02:36 BP 115/75 10/29/17 02:36 Pulse Ox 93 L 10/29/17 06:08 Weight - Most Recent: 76.067 kg I&O - Last 24 hours: Intake & Output 10/28/17 10/29/17 10/29/17 22:59 06:59 14:59 Intake Total 1680 750 Balance 1680 750 Lab Results - Last 24 hrs: Laboratory Results - last 24 hr 10/29/17 10/29/17 10/29/17 Range/Units 05:55 05:55 05:55 WBC 16.41 H (3.98-10.04) K/mm3 RBC 4.54 (3.98-5.22) M/mm3 Hgb 12.3 (11.2-15.7) gm/L Hct 37.5 (34.1-44.9) % MCV 82.6 (79.4-94.8) fl MCH 27.1 (25.6-32.2) pg MCHC 32.8 (32.2-35.5) g/dl RDW Std Deviation 44.3 (36.4-46.3) fL Plt Count 390 H (182-369) K/mm3 MPV 9.5 (9.4-12.3) fl Neut % (Auto) 72.3 H (34.0-71.1) % Lymph % (Auto) 20.8 (19.3-51.7) % Tripp % (Auto) 6.5 (4.7-12.5) % Eos % (Auto) 0 L (0.7-5.8) Baso % (Auto) 0.0 L (0.1-1.2) % Neut # (Auto) 11.85 H (1.56-6.13) K/mm3 Lymph # (Auto) 3.42 (1.18-3.74) K/mm3 Tripp # (Auto) 1.07 H (0.24-0.36) K/mm3 Eos # (Auto) 0.00 L (0.04-0.36) K/mm3 Baso # (Auto) 0.00 L (0.01-0.08) K/mm3 Sodium 141 (136-145) mEq/L Potassium 4.2 (3.5-5.1) mEq/L Chloride 108 H (98-107) mEq/L Carbon Dioxide 22 (21-32) mEq/L Anion Gap 15.2 H (5-15) BUN 13 (7-18) mg/dL Creatinine 0.7 (0.55-1.02) mg/dL Est Cr Clr Drug Dosing 103.40 mL/min Estimated GFR (MDRD) > 60 (>60) mL/min BUN/Creatinine Ratio 18.6 H (14-18) Glucose 99 (74-106) mg/dL Lactic Acid 1.9 (0.4-2.0) mmol/L Calcium 8.3 L (8.5-10.1) mg/dL Magnesium 2.0 (1.8-2.4) mg/dl C-Reactive Protein 1.4 H* (<1.0) mg/dL [facility] Results - Last 24 hrs: Microbiology 10/26/17 18:29 Gram Stain - Final Sputum - Expectorated Sputum Culture - Final Normal Madeline 10/27/17 13:13 Quick Strep Confirmation Culture - Final Throat NEGATIVE FOR BETA STREP Group A Streptococcus Rapid Screen - Final NEGATIVE STREP A SCREEN 10/26/17 15:56 Aerobic Blood Culture - Preliminary Blood - Venous NO GROWTH AFTER 2 DAYS Anaerobic Blood Culture - Preliminary NO GROWTH AFTER 2 DAYS Med Orders - Current: Current Medications Discontinued Medications Acetaminophen (Tylenol) 975 mg PO NOW ONE Stop: 10/26/17 17:43 Last Admin: 10/26/17 18:07 Dose: 975 mg Acetaminophen (Tylenol) 650 mg PO Q6H PRN PRN Reason: Pain/Fever Last Admin: 10/28/17 17:26 Dose: 650 mg Albuterol (Proventil Neb Soln) 2.5 mg NEB ONETIME ONE Stop: 10/26/17 15:10 Last Admin: 10/26/17 15:41 Dose: 2.5 mg Albuterol (Proventil Neb Soln) 2.5 mg NEB ONETIME ONE Stop: 10/26/17 18:07 Last Admin: 10/26/17 18:32 Dose: 2.5 mg Albuterol (Proventil Neb Soln) 2.5 mg NEB ONETIME ONE Stop: 10/26/17 18:07 Last Admin: 10/26/17 19:31 Dose: Not Given Albuterol (Proventil Neb Soln) 2.5 mg NEB Q2H PRN PRN Reason: Shortness of Breath Last Admin: 10/28/17 04:16 Dose: 2.5 mg Albuterol/Ipratropium (Duoneb 3.0-0.5 Mg/3 Ml) 3 ml NEB ONETIME ONE Stop: 10/26/17 11:43 Last Admin: 10/26/17 12:18 Dose: 3 ml Albuterol/Ipratropium (Duoneb 3.0-0.5 Mg/3 Ml) 3 ml NEB ONETIME ONE Stop: 10/26/17 12:33 Last Admin: 10/26/17 12:47 Dose: 3 ml Albuterol/Ipratropium (Duoneb 3.0-0.5 Mg/3 Ml) 3 ml NEB QID [facility] Last Admin: 10/26/17 21:27 Dose: Not Given Albuterol/Ipratropium (Duoneb 3.0-0.5 Mg/3 Ml) 3 ml NEB QIDRT [facility] Last Admin: 10/29/17 06:08 Dose: 3 ml Azithromycin (Zithromax) 250 mg PO Q24H [facility] Last Admin: 10/28/17 18:12 Dose: 250 mg Benzonatate (Tessalon Perles) 200 mg PO TID [facility] Last Admin: 10/28/17 20:32 Dose: 200 mg Enoxaparin Sodium (Lovenox) 40 mg SUBCUT BEDTIME [facility] Last Admin: 10/28/17 20:32 Dose: 40 mg Guaifenesin/Phenylephrine HCl (Robitussin Dm) 10 ml PO Q6H PRN PRN Reason: Cough Last Admin: 10/27/17 05:01 Dose: 10 ml Sodium Chloride (Normal Saline) 1,000 mls @ 999 mls/hr IV ONETIME ONE Stop: 10/26/17 13:33 Last Admin: 10/26/17 12:50 Dose: 999 mls/hr Sodium Chloride (Normal Saline) 1,000 mls @ 999 mls/hr IV ONETIME ONE Stop: 10/26/17 16:34 Last Admin: 10/26/17 15:40 Dose: 999 mls/hr Ceftriaxone Sodium 2 gm/ (Sodium Chloride) 100 mls @ 200 mls/hr IV Q24H [facility] Azithromycin 500 mg/ Sodium (Chloride) 250 mls @ 250 mls/hr IV Q24H [facility] Last Admin: 10/27/17 18:42 Dose: 250 mls/hr Ceftriaxone Sodium 2 gm/ (Sodium Chloride) 100 mls @ 100 mls/hr IV Q24H [facility] Last Admin: 10/27/17 21:46 Dose: 100 mls/hr Magnesium Sulfate 4 gm/ Premix 100 mls @ 300 mls/hr IV ONETIME ONE Stop: 10/27/17 10:03 Last Admin: 10/27/17 10:37 Dose: 300 mls/hr Lactated Ringer's (Ringers, Lactated) 1,000 mls @ 150 mls/hr IV ASDIRECTED [facility] Stop: 10/27/17 16:15 Last Admin: 10/27/17 10:37 Dose: 150 mls/hr Lorazepam (Ativan) 0.5 mg IVPUSH ONETIME ONE Stop: 10/26/17 12:34 Last Admin: 10/26/17 15:48 Dose: 0.5 mg Lorazepam (Ativan) Confirm Administered Dose 2 mg .ROUTE .STK-MED ONE Stop: 10/26/17 15:49 Last Admin: 10/26/17 16:55 Dose: Not Given Methylprednisolone Sodium Succinate (Solu-Medrol) 125 mg IVPUSH ONETIME ONE Stop: 10/26/17 15:34 Last Admin: 10/26/17 15:35 Dose: 125 mg Methylprednisolone Sodium Succinate (Solu-Medrol) 125 mg IVPUSH Q6H [facility] Last Admin: 10/28/17 09:17 Dose: 125 mg Montelukast Sodium (Singulair) 10 mg PO BEDTIME [facility] Last Admin: 10/28/17 20:32 Dose: 10 mg Prednisone (Prednisone) 40 mg PO ONETIME ONE Stop: 10/26/17 13:03 Last Admin: 10/26/17 16:55 Dose: Not Given Prednisone (Prednisone) 20 mg PO ONETIME ONE Stop: 10/28/17 15:20 Last Admin: 10/28/17 15:47 Dose: 20 mg Prednisone (Prednisone) 20 mg PO WITHBREAKFAST [facility] Last Admin: 10/29/17 05:43 Dose: 20 mg Temazepam (Restoril) 7.5 mg PO BEDTIME PRN PRN Reason: Insomnia - Exam General: Reports: Alert, Oriented, Cooperative, No Acute Distress HEENT: Reports: Pupils Equal, Pupils Reactive, EOMI Neck: Reports: Trachea Midline, No JVD Lungs: Reports: Normal Respiratory Effort Cardiovascular: Reports: Regular Rate, Regular Rhythm GI/Abdominal Exam: Normal Bowel Sounds, Soft, Non-Tender, No Organomegaly, No Distention (Female) Exam: Deferred Rectal (Female) Exam: Deferred Back Exam: Reports: Normal Inspection Extremities: Normal Inspection, Non-Tender, Normal Capillary Refill Skin: Reports: Warm, Dry Neurological: Reports: No New Focal Deficit Psy/Mental Status: Reports: Alert, Normal Affect, Normal Mood
== END 2017-10-29 06:20 | disposition home or self-care (01) | DRG 203 ==
LOC: JD.ED 10:56 → JD.ICU 18:10
PROVIDERS: ADMIT Internal Medicine Cardiovascular Disease; ATTEND Internal Medicine Cardiovascular Disease
DX: J45.41 Moderate persistent asthma with (acute) exacerbation (principal); F41.9 Anxiety disorder, unspecified; R09.02 Hypoxemia; J20.9 Acute bronchitis, unspecified; R06.03 Acute respiratory distress; R05 Cough; R06.2 Wheezing; R07.9 Chest pain, unspecified; R06.02 Shortness of breath; E66.3 Overweight; Z68.30 Body mass index [BMI] 30.0-30.9, adult; Z88.1 Allergy status to other antibiotic agents; Z79.899 Other long term (current) drug therapy; Z87.440 Personal history of urinary (tract) infections
CPT/HCPCS: 36415; 71046; 80053; 80306; 81001; 83605; 84443; 84703; 85007; 85027; 85379; 86140; 86738; 87040; 87899; 93005; 94640 ×3; 96361; 96374; 96375; 99285; A9270; J2060; J2930; J7040 ×2; 80048; 83735; 85025; 87070; 87081; 87205; 87430; 87486; 87581; 87632; 87798; J0456; J0696; J1650; J3475; J7030; J7050; J7120; J7620-GY

== ENCOUNTER 2017-12-22 22:31 | Emergency (ER) | payer MEDICAID ==
[2017-12-22 22:42] VITALS: BP 153/100
[2017-12-22] MEDS ORDERED: Albuterol/Ipratropium 3.0-0.5 MG/3 ML Neb Soln NEB ONE ×2 (22:46→23:37)
[2017-12-22] MEDS ORDERED: methylPREDNISolone Sodium Succinate 125 MG/2 ML SDV IVPUSH ONE (22:59)
--- NOTE | 2017-12-22 23:49 | EDM.PDOC ---
ED HPI GENERAL MEDICAL PROBLEM - General Chief Complaint: Asthma Stated Complaint: SOB ASTHMA Time Seen by Provider: 12/22/17 22:40 - History of Present Illness INITIAL COMMENTS - FREE TEXT/NARRATIVE: 22-year-old long-standing asthmatic presents to the emergency room with shortness of breath. Her asthma has been getting worse over the last week however today quite severe she's been using nebulizers about every hour. She has a little bit of a cough occasionally productive. She's not had any fevers or chills. She denies really any significant pain other than when she is coughing severely. She has not been on steroids in quite some time but is uncertain as to when. Treatments SHOP ROUTER: Reports: Other (see below) Other Treatments SHOP ROUTER: nebs and inhaler Chest Pain Score (Numeric/FACES): 7 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 10/26/17 19:16 Home Meds: Home Meds Montelukast [Singulair] 10 mg PO BEDTIME 01/01/16 [History] Albuterol [Proventil HFA] 2 puff INH Q2H PRN #3 inhaler 01/23/17 [Rx] Albuterol/Ipratropium [DuoNeb 3.0-0.5 MG/3 ML] 3 ml NEB Q2H PRN #10 neb [Rx] Inhaler, Assist Devices [Aerochamber with Flowsignal] 1 each MC ASDIRECTED #1 spacer 05/12/17 [Rx] predniSONE 20 mg PO Q24H #21 tab 12/23/17 [Rx] Past Medical History HEENT History: Reports: None Cardiovascular History: Reports: None Respiratory History: Reports: Asthma Genitourinary History: Reports: UTI, Recurrent SEISMIC OBSERVER History: Reports: Other SEISMIC OBSERVER History: - Infectious Disease History Infectious Disease History: Reports: Chicken Pox - Past Surgical History HEENT Surgical History: Reports: Oral Surgery Respiratory Surgical History: Reports: None Female Surgical History: Reports: None Social & Family History - Family History Family Medical History: Noncontributory Cardiac: Reports: Hypertension Respiratory: Reports: Asthma GI: Reports: None Endocrine/Metabolic: Reports: Diabetes, Type I Oncologic: Reports: Brain - Tobacco Use Smoking Status *Q: Never Smoker - Caffeine Use Caffeine Use: Reports: None - Living Situation & Occupation Living situation: Reports: Single, with Family Occupation: Unemployed ED ROS GENERAL - Review of Systems Review Of Systems: See Below Constitutional: Reports: No Symptoms HEENT: Reports: No Symptoms Respiratory: Reports: Shortness of Breath, Wheezing, Pleuritic Chest Pain, Cough , Sputum. Denies: Hemoptysis Cardiovascular: Reports: No Symptoms GI/Abdominal: Reports: No Symptoms : Reports: No Symptoms Musculoskeletal: Reports: No Symptoms Skin: Reports: No Symptoms Neurological: Reports: No Symptoms Psychiatric: Reports: No Symptoms ED EXAM, GENERAL - Physical Exam Exam: See Below Exam Limited By: No Limitations General Appearance: Alert, No Apparent Distress Ears: Normal External Exam, Normal Canal, Hearing Grossly Normal, Normal TMs Nose: Normal Inspection, Normal Mucosa, No Blood Throat/Mouth: Normal Inspection, Normal Lips, Normal Teeth, Normal Gums, Normal Oropharynx, Normal Voice, No Airway Compromise Head: Atraumatic, Normocephalic Neck: Normal Inspection, Supple, Non-Tender, Full Range of Motion. No: Lymphadenopathy (L), Lymphadenopathy (R) Respiratory/Chest: No Respiratory Distress, Decreased Breath Sounds, Wheezing, Prolonged Expiration. No: Respiratory Distress Cardiovascular: Regular Rate, Rhythm, No Edema, No Murmur GI/Abdominal: Normal Bowel Sounds, Soft, Non-Tender Back Exam: Normal Inspection. No: CVA Tenderness (L), CVA Tenderness (R) Course - Vital Signs Last Recorded V/S: Last Vital Signs Temp 37.1 C 12/22/17 22:40 Pulse 121 H 12/22/17 22:40 Resp 28 H 12/22/17 22:40 BP 153/100 H 12/22/17 22:40 Pulse Ox 92 L 12/23/17 01:13 - Orders/Labs/Meds Orders: Active Orders 24 hr Category Date Time Status RT Aerosol Therapy [RC] ASDIRECTED Care 12/22/17 22:47 Active RT Aerosol Therapy [RC] ASDIRECTED Care 12/22/17 23:37 Active RT Aerosol Therapy [RC] ASDIRECTED Care 12/23/17 01:08 Active Chest 2V [CR] Stat Exams 12/23/17 00:50 Taken Labs: Laboratory Tests 12/22/17 12/22/17 12/22/17 Range/Units 23:15 23:15 23:15 WBC 13.06 H (3.98-10.04) K/mm3 RBC 5.30 H (3.98-5.22) M/mm3 Hgb 14.4 (11.2-15.7) gm/L Hct 42.7 (34.1-44.9) % MCV 80.6 (79.4-94.8) fl MCH 27.2 (25.6-32.2) pg MCHC 33.7 (32.2-35.5) g/dl RDW Std Deviation 42.6 (36.4-46.3) fL Plt Count 369 (182-369) K/mm3 MPV 9.3 L (9.4-12.3) fl Neutrophils % (Manual) 75 H (40-60) % Band Neutrophils % 1 (0-10) % Lymphocytes % (Manual) 9 L (20-40) % Atypical Lymphs % 6 % Monocytes % (Manual) 4 (2-10) % Eosinophils % (Manual) 4 (0.7-5.8) % Basophils % (Manual) 1 (0.1-1.2) Toxic Granulation 1+ slight Platelet Estimate Adequate Plt Morphology Comment Normal RBC Morph Comment Normal Sodium 137 (136-145) mEq/L Potassium 3.9 (3.5-5.1) mEq/L Chloride 104 (98-107) mEq/L Carbon Dioxide 24 (21-32) mEq/L Anion Gap 12.9 (5-15) BUN 9 (7-18) mg/dL Creatinine 0.8 (0.55-1.02) mg/dL Est Cr Clr Drug Dosing 90.47 mL/min Estimated GFR (MDRD) > 60 (>60) mL/min BUN/Creatinine Ratio 11.3 L (14-18) Glucose 102 (74-106) mg/dL Calcium 9.3 (8.5-10.1) mg/dL Total Bilirubin 0.3 (0.2-1.0) mg/dL AST 22 (15-37) U/L ALT 32 (14-59) U/L Alkaline Phosphatase 99 (46-116) U/L Total Protein 8.3 H (6.4-8.2) g/dl Albumin 4.1 (3.4-5.0) g/dl Globulin 4.2 gm/dL Albumin/Globulin Ratio 1.0 (1-2) HCG, Qual Negative (NEGATIVE) Meds: Medications Discontinued Medications Generic Name Dose Route Start Last Admin Trade Name Loni PRN Reason Stop Dose Admin Albuterol/Ipratropium 3 ml 12/22/17 22:46 12/22/17 22:51 Duoneb 3.0-0.5 Mg/3 Ml NEB 12/22/17 22:47 3 ml ONETIME ONE Administration Albuterol/Ipratropium 3 ml 12/22/17 23:37 12/22/17 23:49 Duoneb 3.0-0.5 Mg/3 Ml NEB 12/22/17 23:38 3 ml ONETIME ONE Administration Albuterol/Ipratropium 3 ml 12/23/17 01:07 12/23/17 01:13 Duoneb 3.0-0.5 Mg/3 Ml NEB 12/23/17 01:08 3 ml ONETIME ONE Administration Methylprednisolone Sodium Succinate 125 mg 12/22/17 22:59 12/22/17 23:16 Solu-Medrol IVPUSH 12/22/17 23:00 125 mg ONETIME ONE Administration - Re-Assessments/Exams Free Text/Narrative Re-Assessment/Exam: 12/22/17 23:49 Doing much better after 1 nebulizer she'll receive some Solu-Medrol and will follow up with a second nebulizer 12/23/17 02:32 Patient had a total of 3 nebulizers and is doing much better breath sounds are clear with rare expiratory wheezes noted she is insistent on going home at this point. We'll discharge on oral prednisone taper she has a nebulizer at home. She also has her Symbicort and her albuterol MDI Departure - Departure Time of Disposition: 02:35 Disposition: Home, Self-Care 01 Clinical Impression: Asthma exacerbation Qualifiers: Asthma severity: moderate Asthma persistence: persistent Qualified Code(s): J45.41 - Moderate persistent asthma with (acute) exacerbation - Discharge Information Prescriptions: predniSONE 20 mg PO Q24H #21 tab Referrals: Cora Hurd POUCH MAKER [Primary Care Provider] - Forms: ED Department Discharge Additional Instructions: Return to the emergency room with any questions or problems use the prednisone taper as directed. Use your nebulizer every 6 hours and use your albuterol inhaler in between as needed. Follow-up with your regular provider on Sunday - My Orders Last 24 Hours: My Active Orders 12/22/17 22:47 RT Aerosol Therapy [RC] ASDIRECTED 12/22/17 23:37 RT Aerosol Therapy [RC] ASDIRECTED 12/23/17 00:50 Chest 2V [CR] Stat 12/23/17 01:08 RT Aerosol Therapy [RC] ASDIRECTED - Assessment/Plan Last 24 Hours: My Active Orders 12/22/17 22:47 RT Aerosol Therapy [RC] ASDIRECTED 12/22/17 23:37 RT Aerosol Therapy [RC] ASDIRECTED 12/23/17 00:50 Chest 2V [CR] Stat 12/23/17 01:08 RT Aerosol Therapy [RC] ASDIRECTED
[2017-12-23] MEDS ORDERED: Albuterol/Ipratropium 3.0-0.5 MG/3 ML Neb Soln NEB ONE (01:07)
--- NOTE | 2017-12-24 07:20 | CR ---
Chest: Two views of the chest were obtained. Comparison: Prior chest x-ray of 10/28/17. Heart size and mediastinum are normal. Lungs are clear. Bony structures are unremarkable. Impression: 1. Nothing acute is appreciated on two-view chest x-ray. Diagnostic code #1
== END 2017-12-23 03:06 | disposition home or self-care (01) ==
LOC: JD.ED 22:31
DX: J45.41 Moderate persistent asthma with (acute) exacerbation (principal); Z88.1 Allergy status to other antibiotic agents
CPT/HCPCS: 36415; 71046; 80053; 84703; 85007; 85027; 94640; 96374; 99285; J2930; 99284; J7620-GY

== ENCOUNTER 2019-01-13 01:33 | Emergency (ER) | payer MEDICAID, SELFPAY ==
[2019-01-13] MEDS ORDERED: Albuterol/Ipratropium 3.0-0.5 MG/3 ML Neb Soln NEB ONE ×2 (02:02→05:56)
[2019-01-13 05:56] VITALS: BP 136/70; PULSE 82
[2019-01-13] MEDS ORDERED: predniSONE 20 MG Tab PO STA (05:56)
--- NOTE | 2019-01-13 06:08 | EDM.PDOC ---
ED HPI GENERAL MEDICAL PROBLEM - General Chief Complaint: Respiratory Problem Stated Complaint: SOB Time Seen by Provider: 01/13/19 04:19 Source of Information: Reports: Patient History Limitations: Reports: No Limitations - History of Present Illness INITIAL COMMENTS - FREE TEXT/NARRATIVE: Ms. Purcell is a very pleasant 23-year-old woman with a past medical history significant for suspected asthma, who states that her asthma has been out of control for the past 2 weeks, and she ran out of her albuterol MDI yesterday. She reports having a cough and wheezing, along with a sore throat for the past 3 -4 weeks. She denies having a recent fever, and denies having URI symptoms, such as rhinorrhea, nasal congestion, or sinus congestion. The patient states that she also takes Advair, Singulair, and Spiriva, which she states she is not out of. She states that when she uses MDIs, she uses a space chamber. The patient does not have a PCP. - Related Data Allergies Allergy/AdvReac Type Severity Reaction Status Date / Time levofloxacin Allergy Intermediate Hives Verified 12/31/18 21:55 CDT Home Meds: Home Meds Montelukast [Singulair] 10 mg PO BEDTIME 01/01/16 [History] Inhaler, Assist Devices [Aerochamber with Flowsignal] 1 each ASDIRECTED #1 spacer 05/12/17 [Rx] Tiotropium [Spiriva HandiHaler] 1 inh INH DAILY 08/23/18 [History] Albuterol [Proventil Neb Soln] 2.5 mg INH Q4H PRN 09/06/18 [History] Albuterol Sulfate [Albuterol Sulfate Hfa] 2 puff INH Q4H PRN #1 hfa.aer.ad 12/06 [Rx] Albuterol [Ventolin HFA] 1 - 2 puff INH Q4H PRN #1 mdi 01/13/19 [Rx] predniSONE [Prednisone] 1 tab PO QAM #4 tablet 01/13/19 [Rx] Past Medical History Respiratory History: Reports: Asthma (suspected, not tested) [employer]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 - Alcohol Use Alcohol Use History: Yes Alcohol Use Frequency: Socially - Recreational Drug Use Recreational Drug Use: No - Living Situation & Occupation Living situation: Reports: Single, with Family Occupation: Unemployed ED ROS GENERAL - Review of Systems Review Of Systems: ROS reveals no pertinent complaints other than HPI. ED EXAM, GENERAL - Physical Exam Exam: See Below Exam Limited By: No Limitations General Appearance: Alert, WD/WN, No Apparent Distress Eye Exam: Bilateral Eye: EOMI, Normal Inspection Ears: Normal External Exam, Normal Canal, Hearing Grossly Normal, Normal TMs Nose: Normal Inspection, Normal Mucosa, No Blood Throat/Mouth: Normal Inspection, Normal Lips, Normal Teeth, Normal Gums, Normal Oropharynx, Normal Voice, No Airway Compromise Head: Atraumatic, Normocephalic Neck: Normal Inspection, Supple, Non-Tender, Full Range of Motion. No: Lymphadenopathy (L), Lymphadenopathy (R) Respiratory/Chest: No Respiratory Distress, No Accessory Muscle Use, Decreased Breath Sounds, Wheezing (expiratory, across al james). No: Crackles, Rhonchi, Stridor, Prolonged Expiration (mild) Cardiovascular: Normal Peripheral Pulses, Regular Rate, Rhythm, No Edema, No Gallop, No JVD, No Murmur, No Rub Peripheral Pulses: 4+: Radial (L), Radial (R) GI/Abdominal: Normal Bowel Sounds, Soft, Non-Tender, No Organomegaly, No Distention, No Abnormal Bruit, No Mass (Female) Exam: Deferred Rectal (Female) Exam: Deferred Back Exam: Normal Inspection, Full Range of Motion, NT Extremities: Normal Inspection, Normal Range of Motion, No Pedal Edema, Normal Capillary Refill Neurological: Alert, Oriented, Normal Cognition, No Motor/Sensory Deficits Psychiatric: Normal Affect Skin Exam: Warm, Dry, Intact, Normal Color, No Rash Course - Vital Signs Last Recorded V/S: Last Vital Signs Temp 36.7 C 01/13/19 02:00 Pulse 82 01/13/19 02:00 Resp 18 01/13/19 02:00 BP 136/70 01/13/19 02:00 Pulse Ox 96 01/13/19 06:04 - Orders/Labs/Meds Orders: Active Orders 24 hr Category Date Time Status RT Aerosol Therapy [RC] ASDIRECTED Care 01/13/19 05:56 Active Meds: Medications Discontinued Medications Generic Name Dose Route Start Last Admin Trade Name Freq PRN Reason Stop Dose Admin Albuterol/Ipratropium 3 ml 01/13/19 02:02 01/13/19 02:09 Duoneb 3.0-0.5 Mg/3 Ml NEB 01/13/19 02:03 3 ml ONETIME ONE Administration Albuterol/Ipratropium 3 ml 01/13/19 05:56 01/13/19 06:04 Duoneb 3.0-0.5 Mg/3 Ml NEB 01/13/19 05:57 3 ml ONETIME ONE Administration Prednisone 60 mg 01/13/19 05:56 01/13/19 06:20 Prednisone PO 01/13/19 05:57 60 mg ONETIME STA Administration - Re-Assessments/Exams Free Text/Narrative Re-Assessment/Exam: 01/13/19 06:00 The patient appears to have poorly controlled asthma. She has expiratory wheezing and frequent coughing. For today's purposes, she will receive a DuoNeb and 60 mg of oral prednisone, and I will prescribe an albuterol MDI and prednisone 20 mg daily for the next 4 days, to complete a five-day course. I will refer her to the clinic to establish a PCP. Departure - Departure Time of Disposition: 06:01 Disposition: Home, Self-Care 01 Condition: Good Clinical Impression: Asthma - Discharge Information *PRESCRIPTION DRUG MONITORING PROGRAM REVIEWED*: Not Applicable *COPY OF PRESCRIPTION DRUG MONITORING REPORT IN PATIENT GALDINO: Not Applicable Prescriptions: Albuterol [Ventolin HFA] 1 - 2 puff INH Q4H PRN #1 mdi PRN Reason: Wheezing predniSONE [Prednisone] 1 tab PO QAM #4 tablet Instructions: Asthma, Adult Referrals: Antonina Walton MD [Physician] - Forms: ED Department Discharge Additional Instructions: You were seen in the emergency room for poorly controlled asthma and running out of your albuterol. You received a DuoNeb and oral prednisone in the ER. Prescriptions for a replacement albuterol MDI and prednisone were submitted to [facility], located in the [facility] across the [address] from the hospital. Take 1-2 puffs of albuterol, always using your space chamber, as frequently as needed, however, if you require albuterol more often than every 4 hours, you need to be seen by a doctor. Take one tablet of prednisone every morning for 4 mornings, starting tomorrow morning, 01/14/2019, as prescribed. Finish the entire prescription. Follow-up with Dr. Antonina Walton, or one of the other providers in the clinic, at the next available appointment. If any other problems, please do not hesitate to return to the ER. - My Orders Last 24 Hours: My Active Orders 01/13/19 05:56 RT Aerosol Therapy [RC] ASDIRECTED - Assessment/Plan Last 24 Hours: My Active Orders 01/13/19 05:56 RT Aerosol Therapy [RC] ASDIRECTED
== END 2019-01-13 06:20 | disposition home or self-care (01) ==
LOC: JD.ED 01:33
DX: J45.909 Unspecified asthma, uncomplicated (principal); Z88.1 Allergy status to other antibiotic agents; Z79.899 Other long term (current) drug therapy; Z79.51 Long term (current) use of inhaled steroids; Z79.52 Long term (current) use of systemic steroids
CPT/HCPCS: 94640; 99284; A9270; J7620-GY

== ENCOUNTER 2019-03-11 03:32 | Emergency (ER) | payer MEDICAID ==
[2019-03-11 03:46] VITALS: BP 126/91; PULSE 100
[2019-03-11] MEDS ORDERED: Albuterol/Ipratropium 3.0-0.5 MG/3 ML Neb Soln NEB ONE (04:13)
[2019-03-11] MEDS ORDERED: predniSONE 20 MG Tab PO STA (04:13)
--- NOTE | 2019-03-11 04:19 | EDM.PDOC ---
ED HPI GENERAL MEDICAL PROBLEM - General Chief Complaint: Respiratory Problem Stated Complaint: SOB Time Seen by Provider: 03/11/19 03:44 Source of Information: Reports: Patient History Limitations: Reports: No Limitations - History of Present Illness INITIAL COMMENTS - FREE TEXT/NARRATIVE: Ms. Purcell is a pleasant 23-year-old with a past medical history significant for presumed asthma, who states that she has been suffering from chronic dyspnea , wheezing, and coughing for the past 3 years. She states that she was on Medicaid, but that she moved to [place], lost her Medicaid, then moved back here in January. She is endeavoring to re-acquire Medicaid, but without Medicaid, she cannot afford all but the least expensive of medications, and she cannot afford to see a PCP. She states that her breathing feels good when she is on steroids, but as soon as the steroid finishes, her symptoms return. She has therefore been repeatedly going to the walk-in clinic for treatment and prescriptions. She states that she was seen at the walk-in clinic on 02/28/20 , and prescribed a Medrol Dosepak. She states that she was also prescribed Pulmicort and DuoNeb, however, the Pulmicort cost around $200, which she could not afford, and while DuoNeb is not expensive, she left her nebulizer machine in [place]. She then returned to the walk-in clinic just yesterday, 03/10/2019. She was given an injection of a steroid, but not a prescription. The patient states that she has a peak flow meter at home, but does not use it. She also has a space chamber, but has not used it in about one month. No recent fever, nausea, vomiting, constipation, or diarrhea. The patient does not have a PCP. She states that she received an influenza vaccine in December. - Related Data Allergies Allergy/AdvReac Type Severity Reaction Status Date / Time levofloxacin Allergy Intermediate Hives Verified 03/11/19 03:46 Home Meds: Home Meds Montelukast [Singulair] 10 mg PO BEDTIME 01/01/16 [History] Inhaler, Assist Devices [Aerochamber with Flowsignal] 1 each MC ASDIRECTED #1 spacer 05/12/17 [Rx] Tiotropium [Spiriva HandiHaler] 1 inh INH DAILY 08/23/18 [History] Albuterol [Proventil Neb Soln] 2.5 mg INH Q4H PRN 09/06/18 [History] Albuterol Sulfate [Albuterol Sulfate Hfa] 2 puff INH Q4H PRN #1 hfa.aer.ad 12/06 [Rx] Albuterol [Ventolin HFA] 1 - 2 puff INH Q4H PRN #1 mdi 01/13/19 [Rx] predniSONE [Prednisone] 1 tab PO QAM #4 tablet 01/13/19 [Rx] predniSONE [Prednisone] 1 tab PO QAM #5 tablet 03/11/19 [Rx] Past Medical History Respiratory History: Reports: Asthma (presumed, not tested) 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: Endocrine/Metabolic History: Reports: Obesity/BMI 30+ - Infectious Disease History Infectious Disease History: Reports: Chicken Pox - Past Surgical History HEENT Surgical History: Reports: Oral Surgery (wisdom teeth extraction) Social & Family History - Family History Family Medical History: Noncontributory Cardiac: Reports: Hypertension Respiratory: Reports: Asthma GI: Reports: None Endocrine/Metabolic: Reports: Diabetes, Type I Oncologic: Reports: Brain - Tobacco Use Smoking Status *Q: Never Smoker Second Hand Smoke Exposure: No - Caffeine Use Caffeine Use: Reports: None Caffeine Use Comment: Pt reports an energy drink daily, and intermittent cups of coffee. - Alcohol Use Alcohol Use History: Yes Alcohol Use Frequency: Socially - Recreational Drug Use Recreational Drug Use: No - Living Situation & Occupation Living situation: Reports: Single, with Family Occupation: Unemployed ED ROS GENERAL - Review of Systems Review Of Systems: Comprehensive ROS is negative, except as noted in HPI. ED EXAM, GENERAL - Physical Exam Exam: See Below Exam Limited By: No Limitations General Appearance: Alert, WD/WN, No Apparent Distress Eye Exam: Bilateral Eye: EOMI, Normal Inspection Ears: Normal External Exam, Hearing Grossly Normal Nose: Normal Inspection Throat/Mouth: Normal Inspection, Normal Lips, Normal Voice, No Airway Compromise Head: Atraumatic, Normocephalic Neck: Normal Inspection, Full Range of Motion Respiratory/Chest: No Respiratory Distress, No Accessory Muscle Use, Wheezing ( expiratory, across all lungfields), Prolonged Expiration Cardiovascular: Normal Peripheral Pulses, Regular Rate, Rhythm, No Edema, No Gallop, No JVD, No Murmur, No Rub Peripheral Pulses: 4+: Radial (L), Radial (R) GI/Abdominal: Normal Bowel Sounds, Soft, Non-Tender, No Organomegaly, No Distention, No Abnormal Bruit, No Mass (Female) Exam: Deferred Rectal (Female) Exam: Deferred Back Exam: Normal Inspection, Full Range of Motion, NT Extremities: Normal Inspection, Normal Range of Motion, No Pedal Edema, Normal Capillary Refill Neurological: Alert, Oriented, Normal Cognition, No Motor/Sensory Deficits Psychiatric: Normal Affect Skin Exam: Warm, Dry, Intact, Normal Color, No Rash Course - Vital Signs Last Recorded V/S: Last Vital Signs Temp 36.5 C 03/11/19 03:43 Pulse 100 03/11/19 03:43 Resp 18 03/11/19 03:43 BP 126/91 H 03/11/19 03:43 Pulse Ox 96 03/11/19 05:41 - Orders/Labs/Meds Orders: Active Orders 24 hr Category Date Time Status RT Aerosol Therapy [RC] ASDIRECTED Care 03/11/19 04:13 Active RT Aerosol Therapy [RC] ASDIRECTED Care 03/11/19 04:43 Active RT Aerosol Therapy [RC] ASDIRECTED Care 03/11/19 05:16 Active RT Aerosol Therapy [RC] ASDIRECTED Care 03/11/19 05:41 Active Meds: Medications Discontinued Medications Generic Name Dose Route Start Last Admin Trade Name Loni PRN Reason Stop Dose Admin Albuterol 2.5 mg 03/11/19 04:43 03/11/19 04:50 Proventil Neb Soln NEB 03/11/19 04:44 2.5 mg ONETIME ONE Administration Albuterol 2.5 mg 03/11/19 05:16 03/11/19 05:20 Proventil Neb Soln NEB 03/11/19 05:17 2.5 mg ONETIME ONE Administration Albuterol 2.5 mg 03/11/19 05:41 03/11/19 05:47 Proventil Neb Soln NEB 03/11/19 05:42 2.5 mg ONETIME ONE Administration Albuterol/Ipratropium 3 ml 03/11/19 04:13 03/11/19 04:19 Duoneb 3.0-0.5 Mg/3 Ml NEB 03/11/19 04:14 3 ml ONETIME ONE Administration Prednisone 60 mg 03/11/19 04:13 03/11/19 04:35 Prednisone PO 03/11/19 04:14 60 mg ONETIME STA Administration - Re-Assessments/Exams Free Text/Narrative Re-Assessment/Exam: 03/11/19 04:19 The patient appears to be suffering from an asthma exacerbation. She has expiratory wheezing heard in all of her lung james with prolonged exhalation. She has been coughing. I have therefore ordered a DuoNeb, and will order additional albuterol, if needed. My biggest concern is that the patient tells me that she has been on near- continuous steroids for the past 3 years. Due to not currently having Medicare, and having no independent finances to afford a PCP or pay for her own medications, the patient cannot be started on medications that might help her to get off steroids - medications such as an inhaled corticosteroid and a long- acting beta-2 agonist, in addition to the Singulair that she is on. Since she is currently symptomatic, I have no choice but to start her back on some prednisone. The patient mention, however, that while she owns a space chamber, she has not used it for about one month. This means that the albuterol she is taking by MDI is practically useless. At the very least, she can start using that to help gain some control of her asthma. 03/11/19 04:43 Following a DuoNeb, I do not hear any improvement in the patient's lungs. I have ordered an albuterol neb. 03/11/19 05:17 Following an albuterol neb treatment, I do not hear any significant improvement in the patient's lungs. I have ordered another albuterol neb. 03/11/19 05:42 Following an albuterol neb treatment, there is some improvement in the patient' s lungs, and she states that she is starting to feel better. I have ordered another albuterol neb. 03/11/19 06:25 On reevaluation, the patient's lungs still have significant expiratory wheezing , however, the patient states that her breathing feels better now than it has for a long time. She feels well enough to go home, and declined an offer for an additional albuterol neb. I will discharge her home with a prescription for prednisone. I reminded her to use her space chamber anytime she uses her albuterol MDI. Departure - Departure Time of Disposition: 06:26 Disposition: Home, Self-Care 01 Condition: Good Clinical Impression: Asthma exacerbation Qualifiers: Asthma severity: moderate Asthma persistence: unspecified Qualified Code(s): J45.901 - Unspecified asthma with (acute) exacerbation - Discharge Information *PRESCRIPTION DRUG MONITORING PROGRAM REVIEWED*: Not Applicable *COPY OF PRESCRIPTION DRUG MONITORING REPORT IN PATIENT GALDINO: Not Applicable Referrals: Antonina Walton MD [Physician] - Forms: ED Department Discharge Additional Instructions: You were seen in the emergency room for recurrent shortness of breath, wheezing , and coughing, symptoms consistent with an asthma exacerbation. You received a DuoNeb, 3 albuterol nebs, and oral prednisone in the ER, with some improvement in your symptoms. A prescriptive for prednisone has been sent to [facility], located in the [facility], across the street from the hospital. Take one tablet of prednisone every morning, starting tomorrow morning, Sunday, 2018, as prescribed. Continue to use your albuterol as needed for shortness of breath and wheezing, with or without coughing. Be sure to shake your inhaler vigorously for 10-15 seconds prior to using it, and always use your space chamber whenever you use your inhaler. Follow-up with Dr. Antonina Walton, or one of the other providers in the clinic, at the next available appointment. If any other problems, please do not hesitate to return to the ER. Sepsis Event Note - Evaluation Sepsis Screening Result: No Definite Risk - Focused Exam Vital Signs: Vital Signs Temp Pulse Resp BP Pulse Ox Pulse Ox 03/11/19 05:41 96 03/11/19 05:16 94 L 03/11/19 04:43 93 L 03/11/19 04:23 96 03/11/19 03:43 36.5 C 100 18 126/91 H 94 L Date Exam was Performed: 03/11/19 Time Exam was Performed: 06:25 - My Orders Last 24 Hours: My Active Orders 03/11/19 04:13 RT Aerosol Therapy [RC] ASDIRECTED 03/11/19 04:43 RT Aerosol Therapy [RC] ASDIRECTED 03/11/19 05:16 RT Aerosol Therapy [RC] ASDIRECTED 03/11/19 05:41 RT Aerosol Therapy [RC] ASDIRECTED - Assessment/Plan Last 24 Hours: My Active Orders 03/11/19 04:13 RT Aerosol Therapy [RC] ASDIRECTED 03/11/19 04:43 RT Aerosol Therapy [RC] ASDIRECTED 03/11/19 05:16 RT Aerosol Therapy [RC] ASDIRECTED 03/11/19 05:41 RT Aerosol Therapy [RC] ASDIRECTED
[2019-03-11] MEDS ORDERED: Albuterol 0.083% 2.5 MG/3 ML Neb Soln NEB ONE ×3 (04:43→05:41)
== END 2019-03-11 06:44 | disposition home or self-care (01) ==
LOC: JD.ED 03:32
DX: J45.901 Unspecified asthma with (acute) exacerbation (principal); E66.9 Obesity, unspecified; Z68.31 Body mass index [BMI] 31.0-31.9, adult; Z88.8 Allergy status to other drugs, medicaments and biological substances; Z79.899 Other long term (current) drug therapy
CPT/HCPCS: 94640; 99284; A9270; J7620-GY

== ENCOUNTER 2019-03-18 16:04 | Emergency (ER) | payer MEDICAID ==
[2019-03-18 16:12] VITALS: BP 147/87; PULSE 101
[2019-03-18] MEDS ORDERED: Albuterol/Ipratropium 3.0-0.5 MG/3 ML Neb Soln NEB ONE ×2 (16:32→17:26)
[2019-03-18] MEDS ORDERED: Albuterol 0.083% 2.5 MG/3 ML Neb Soln NEB ONE (16:32)
[2019-03-18] MEDS ORDERED: predniSONE 20 MG Tab PO ONE (16:56)
--- NOTE | 2019-03-18 17:04 | EDM.PDOC ---
ED HPI GENERAL MEDICAL PROBLEM - General Chief Complaint: Respiratory Problem Stated Complaint: ASTHMA Time Seen by Provider: 03/18/19 16:21 Source of Information: Reports: Patient History Limitations: Reports: No Limitations - History of Present Illness INITIAL COMMENTS - FREE TEXT/NARRATIVE: Patient is a 23-year-old female who presents with shortness of breath and wheezing. She has a long-standing history of uncontrolled asthma. She was last seen in our emergency department approximately 7 days ago and placed on a 5 day course of oral steroids. She has essentially been dependent on oral steroids for the last 3 years as she states that she cannot afford the inhaled medications other than an albuterol inhaler. Patient had moved to [facility] and lost her Medicaid. She states that she has reapplied for Medicaid, however she has not received notice that she has been approved as of yet. She has been using her albuterol inhaler, however she has not been using it with a spacer as she was instructed to do on her previous visit. She states that she used to have DuoNeb treatments, however she left her nebulizer machine and [place]. She states that even with the steroids, she would wake up 3 times per night coughing and short of breath. This is much worse now that she is not on oral steroids. She states that she has been using the albuterol inhaler that was given to her last visit repeatedly and states that it doesn't seem like it does anything after a while. The inhaler is almost empty. Denies fever or chills. - Related Data Allergies Allergy/AdvReac Type Severity Reaction Status Date / Time levofloxacin Allergy Intermediate Hives Verified 03/18/19 16:09 Home Meds: Home Meds Montelukast [Singulair] 10 mg PO BEDTIME 01/01/16 [History] Albuterol [Proventil Neb Soln] 2.5 mg INH Q4H PRN 09/06/18 [History] Albuterol Sulfate [Albuterol Sulfate Hfa] 2 puff INH Q4H PRN #1 hfa.aer.ad 12/06 [Rx] Albuterol/Ipratropium [DuoNeb 3.0-0.5 MG/3 ML] 3 ml .XX Q4H PRN #30 neb [Rx] predniSONE [Prednisone] 20 mg PO ASDIRECTED #18 tablet 03/18/19 [Rx] Past Medical History HEENT History: Reports: None Cardiovascular History: Reports: None Respiratory History: Reports: Asthma Other Respiratory History: pneumonia x2 Genitourinary History: Reports: UTI, Recurrent PANEL BEATER History: Reports: Other PANEL BEATER History: Endocrine/Metabolic History: Reports: Obesity/BMI 30+ - Infectious Disease History Infectious Disease History: Reports: Chicken Pox - Past Surgical History HEENT Surgical History: Reports: Oral Surgery Female Surgical History: Reports: None Social & Family History - Family History Family Medical History: Noncontributory Cardiac: Reports: Hypertension Respiratory: Reports: Asthma GI: Reports: None Endocrine/Metabolic: Reports: Diabetes, Type I Oncologic: Reports: Brain - Tobacco Use Smoking Status *Q: Never Smoker - Caffeine Use Caffeine Use: Reports: None Caffeine Use Comment: Pt reports an energy drink daily, and intermittent cups of coffee. - Living Situation & Occupation Living situation: Reports: Single, with Family Occupation: Unemployed ED ROS GENERAL - Review of Systems Review Of Systems: See Below Constitutional: Denies: Fever, Chills HEENT: Reports: No Symptoms Respiratory: Reports: Shortness of Breath, Wheezing, Cough Cardiovascular: Reports: No Symptoms Endocrine: Reports: No Symptoms GI/Abdominal: Reports: No Symptoms : Reports: No Symptoms Musculoskeletal: Reports: No Symptoms Skin: Reports: No Symptoms Neurological: Reports: No Symptoms Psychiatric: Reports: No Symptoms Hematologic/Lymphatic: Reports: No Symptoms Immunologic: Reports: No Symptoms ED EXAM, GENERAL - Physical Exam Exam: See Below Exam Limited By: No Limitations General Appearance: Alert, WD/WN, Mild Distress Respiratory/Chest: Chest Non-Tender, Respiratory Distress (mild), Wheezing ( inspiratory and expiratory throughout. Pt able to carry on a conversation but does become SOB.). No: Crackles, Rhonchi Cardiovascular: Normal Peripheral Pulses, Regular Rate, Rhythm, No Edema, No Murmur Neurological: Alert, Oriented, Normal Cognition Psychiatric: Normal Affect, Normal Mood Skin Exam: Warm, Dry, Intact, Normal Color, No Rash Course - Vital Signs Last Recorded V/S: Last Vital Signs Temp 97.5 F 03/18/19 16:10 Pulse 101 H 03/18/19 16:10 Resp 22 H 03/18/19 16:10 BP 147/87 H 03/18/19 16:10 Pulse Ox 93 L 03/18/19 17:35 - Orders/Labs/Meds Orders: Active Orders 24 hr Category Date Time Status RT Aerosol Therapy [RC] ASDIRECTED Care 03/18/19 16:32 Active RT Aerosol Therapy [RC] ASDIRECTED Care 03/18/19 17:25 Active RT Post Treatment Assessment [RC] Click to Edit Care 03/18/19 17:13 Active RT Pre-Treatment Assessment [RC] Click to Edit Care 03/18/19 17:13 Active Chest 1V Frontal [CR] Stat Exams 03/18/19 16:34 Taken Meds: Medications Discontinued Medications Generic Name Dose Route Start Last Admin Trade Name Freq PRN Reason Stop Dose Admin Albuterol 7.5 mg 03/18/19 16:32 03/18/19 16:40 Proventil Neb Soln NEB 03/18/19 16:33 7.5 mg ONETIME ONE Administration Albuterol 0 gm 03/18/19 17:12 03/18/19 17:23 Proventil Hfa INH 03/18/19 17:13 1 inh ONETIME ONE Administration Albuterol/Ipratropium 3 ml 03/18/19 16:32 03/18/19 16:40 Duoneb 3.0-0.5 Mg/3 Ml NEB 03/18/19 16:33 3 ml ONETIME ONE Administration Albuterol/Ipratropium 3 ml 03/18/19 17:26 03/18/19 17:34 Duoneb 3.0-0.5 Mg/3 Ml NEB 03/18/19 17:27 3 ml ONETIME ONE Administration Budesonide 0.5 mg 03/18/19 17:25 03/18/19 17:34 Pulmicort NEB 03/18/19 17:26 0.5 mg ONETIME ONE Administration Prednisone 20 mg 03/18/19 16:56 03/18/19 17:12 Prednisone PO 03/18/19 16:57 20 mg ONETIME ONE Administration Promethazine HCl/Codeine 5 ml 03/18/19 17:26 03/18/19 17:34 Phenergan With Codeine PO 03/18/19 17:27 5 ml ONETIME ONE Administration - Re-Assessments/Exams Free Text/Narrative Re-Assessment/Exam: Patient is a 23 old female who presents with an acute asthma exacerbation. Looking back through her medical history she does have a history of chronic medical noncompliance with regards to her asthma treatment. She has essentially been on oral steroids for the last 3 years with small episodes in between off. On exam, she does have inspiratory and expiratory wheezes with mild respiratory distress. She is oxygenating 95% on room air. She is able to carry on a conversation, however her sentences are short. In the past she has required a DuoNeb treatment as well as numerous albuterol treatments in order to improve her air exchange. I have ordered a DuoNeb treatment as well as 7.5 mg of continuous albuterol to be given. Will reassess after this medication has been administered. 03/18/19 17:14 After DuoNeb and continuous albuterol 7.5 mg, patient is moving air much better ; however, she does still have a slight expiratory wheeze. I have ordered 20 mg of prednisone to be given now. She will receive a prescription for prednisone 20 mg twice daily for 6 days and then prednisone 20 mg once daily for 6 days. We'll also send her home with a nebulizer machine. She was advised that this will be billed through [employer] and she can try to have Medicaid cover the bill once she gets approved. I will also send a prescription for DuoNeb solution. The only pharmacy open this evening is [facility] in [facility] so these prescriptions will be sent there. I did emphasize with the patient the importance of contacting social work instructor first thing morning to attempt to get her Medicaid approved. Patient was advised of the risks of being on long-term systemic steroids as well as having untreated asthma. She verbalizes that she understands this. 03/18/19 17:27 I was updated by nursing staff that patient is working hard to breathe again. oxygen saturation is 94% on room air. She had an episode of coughing and states that she has a hard time recovering after coughing. I ordered a Pulmicort treatment as well as another DuoNeb. We will give her a dose of Phenergan with codeine for her cough. We'll reassess after the treatments are done. 03/18/19 17:56 After the treatments, patient states that she is feeling much better. Oxygen saturation is 95% on room air. She is in no obvious respiratory distress and breathing with ease. She does still have a faint expiratory wheeze but she is comfortable going home at this time. I did stress that if anything should get worse she should return to the emergency department rather than waiting. she is being sent home with a nebulizer machine, albuterol inhaler, and spacer. discharge instructions as noted. Departure - Departure Time of Disposition: 17:59 Disposition: Home, Self-Care 01 Condition: Fair Clinical Impression: Exacerbation of asthma - Discharge Information *PRESCRIPTION DRUG MONITORING PROGRAM REVIEWED*: No *COPY OF PRESCRIPTION DRUG MONITORING REPORT IN PATIENT GALDINO: No Prescriptions: Albuterol/Ipratropium [DuoNeb 3.0-0.5 MG/3 ML] 3 ml .XX Q4H PRN #30 neb PRN Reason: Shortness Of Breath predniSONE [Prednisone] 20 mg PO ASDIRECTED #18 tablet Instructions: Asthma, Adult, Shortness of Breath, Adult, [id number] Referrals: PCP,None [Primary Care Provider] - Forms: ED Department Discharge Additional Instructions: You were seen in the emergency department tonight for shortness of breath and cough. You received 2 DuoNeb treatments, total of 3 albuterol treatments, a Pulmicort treatment, an albuterol inhaler, as well as a dose of oral prednisone. Your breathing did improve substantially after these treatments. As we discussed, it is imperative that you get on long-term daily asthma medications to control your asthma symptoms. Asthma can be a life- threatening condition if not managed appropriately. I recommend that you call social work instructor first thing morning to try to expedite the processing of your Medicaid. Once this is done, you must get into a primary care provider as soon as possible to establish long-term asthma treatment and an asthma action plan. A prescription for prednisone as well as DuoNeb breathing treatments has been sent to [facility] in [facility]. They are open until 8 PM this evening. Take his medications as prescribed in addition to your albuterol rescue inhaler as needed. If you have used your medications and are not having relief from your cough and shortness of breath or develop any new/concerning symptoms, it is imperative that you return to the emergency department immediately for further treatment. Sepsis Event Note - Evaluation Sepsis Screening Result: No Definite Risk - Focused Exam Vital Signs: Vital Signs Temp Pulse Resp BP Pulse Ox Pulse Ox 03/18/19 17:35 93 L 03/18/19 16:32 93 L 03/18/19 16:10 97.5 F 101 H 22 H 147/87 H 95 Date Exam was Performed: 03/18/19 Time Exam was Performed: 18:23 - My Orders Last 24 Hours: My Active Orders 03/18/19 16:32 RT Aerosol Therapy [RC] ASDIRECTED 03/18/19 16:34 Chest 1V Frontal [CR] Stat 03/18/19 17:13 RT Post Treatment Assessment [RC] Click to Edit RT Pre-Treatment Assessment [RC] Click to Edit 03/18/19 17:25 RT Aerosol Therapy [RC] ASDIRECTED - Assessment/Plan Last 24 Hours: My Active Orders 03/18/19 16:32 RT Aerosol Therapy [RC] ASDIRECTED 03/18/19 16:34 Chest 1V Frontal [CR] Stat 03/18/19 17:13 RT Post Treatment Assessment [RC] Click to Edit RT Pre-Treatment Assessment [RC] Click to Edit 03/18/19 17:25 RT Aerosol Therapy [RC] ASDIRECTED
[2019-03-18] MEDS ORDERED: Albuterol 6.7 GM Inhaler INH ONE (17:12)
[2019-03-18] MEDS ORDERED: Budesonide 0.5 MG/2 ML Neb Susp NEB ONE (17:25)
[2019-03-18] MEDS ORDERED: Codeine/Promethazine 10-6.25 MG/5 ML Syrup 5 ML UD Cup PO ONE (17:26)
--- NOTE | 2019-03-20 07:24 | CR ---
Chest: Portable view of the chest was obtained. Comparison: Prior chest x-ray of 12/23/17. Heart size and mediastinum are normal. Lungs are clear. Bony structures are unremarkable. Impression: 1. Nothing acute is seen on portable chest x-ray. Diagnostic code #1 This report was dictated in [place] Standard Time
== END 2019-03-18 18:12 | disposition home or self-care (01) ==
LOC: JD.ED 16:04
DX: J45.901 Unspecified asthma with (acute) exacerbation (principal); E66.9 Obesity, unspecified; Z88.8 Allergy status to other drugs, medicaments and biological substances; Z79.899 Other long term (current) drug therapy
CPT/HCPCS: 71045; 94640; 99285; A9270; J7620-GY

== ENCOUNTER 2020-12-11 20:09 | Emergency (ER) | payer MEDICAID, SELFPAY ==
[2020-12-11 20:31] VITALS: BP 135/76; PULSE 104
--- NOTE | 2020-12-11 21:44 | EDM.PDOC ---
ED HPI GENERAL MEDICAL PROBLEM - General Chief Complaint: Fever Stated Complaint: SORE THROAT/FEVER Time Seen by Provider: 12/11/20 21:07 Source of Information: Reports: Patient, RN Notes Reviewed History Limitations: Reports: No Limitations - History of Present Illness INITIAL COMMENTS - FREE TEXT/NARRATIVE: Patient is a 25-year-old female presenting to the emergency department with complaints of severe throat pain and subjective fever with chills. She denies any cough or shortness of breath, however states she has been wheezing today but that is because she did not take her daily inhaler this morning. Denies any nausea, vomiting, or diarrhea. Treatments HR MANAGER: Reports: Other (see below) Other Treatments HR MANAGER: theraflu - Related Data Allergies Allergy/AdvReac Type Severity Reaction Status Date / Time levofloxacin Allergy Intermediate Hives Verified 12/11/20 20:31 Home Meds: Home Meds Albuterol [Proventil Neb Soln] 2.5 mg INH Q4H PRN 09/06/18 [History] Albuterol Sulfate [Albuterol Sulfate Hfa] 2 puff INH Q4H PRN #1 [id number] 12/06/18 [Rx] Amoxicillin 500 mg PO BID 10 Days #19 capsule 12/11/20 [Rx] Budesonide/Formoterol Fumarate [Symbicort 160-4.5 Mcg Inhaler] 1 puff INH BID 12/11/20 [History] Past Medical History HEENT History: Reports: None Cardiovascular History: Reports: None Respiratory History: Reports: Asthma Other Respiratory History: pneumonia x2 Genitourinary History: Reports: UTI, Recurrent LEAD TECHNICAL ARCHITECT History: Reports: Other LEAD TECHNICAL ARCHITECT History: Endocrine/Metabolic History: Reports: Obesity/BMI 30+ - Infectious Disease History Infectious Disease History: Reports: Chicken Pox - Past Surgical History HEENT Surgical History: Reports: Oral Surgery Other HEENT Surgeries/Procedures: wisdom teeth out Cardiovascular Surgical History: Reports: None Respiratory Surgical History: Reports: None Female Surgical History: Reports: None Social & Family History - Family History Family Medical History: No Pertinent Family History Cardiac: Reports: Hypertension Respiratory: Reports: Asthma GI: Reports: None Endocrine/Metabolic: Reports: Diabetes, Type I Oncologic: Reports: Brain - Tobacco Use Tobacco Use Status *Q: Never Tobacco User - Caffeine Use Caffeine Use: Reports: None Caffeine Use Comment: Pt reports an energy drink daily, and intermittent cups of coffee. - Recreational Drug Use Recreational Drug Use: No - Living Situation & Occupation Living situation: Reports: Single, with Family Occupation: Unemployed ED ROS ENT - Review of Systems Review Of Systems: Comprehensive ROS is negative, except as noted in HPI. ED EXAM, ENT - Physical Exam Exam: See Below Exam Limited By: No Limitations General Appearance: Alert, WD/WN, No Apparent Distress Mouth/Throat: Normal Inspection, Normal Gums, Tonsillar Erythema, Tonsillar Exudates. No: Peritonsillar Mass, Trismus, Uvular Deviation, Uvular Edema Neck: Normal Inspection, Lymphadenopathy (L), Lymphadenopathy (R) Respiratory/Chest: No Respiratory Distress, No Accessory Muscle Use, Chest Non-Tender, Other (Faint expiratory wheeze) Cardiovascular: Normal Peripheral Pulses, Regular Rate, Rhythm, No Edema, No Gallop, No JVD, No Murmur, No Rub Neurological: Alert, Oriented, CN II-XII Intact, Normal Cognition, Normal Gait, Normal Reflexes, No Motor/Sensory Deficits Psychiatric: Normal Affect, Normal Mood Skin: Warm, Dry, Intact, Normal Color, No Rash Course - Vital Signs Last Recorded V/S: Last Vital Signs Temp 97.6 F 12/11/20 20:27 Pulse 104 H 12/11/20 20:27 Resp 20 12/11/20 20:27 BP 135/76 12/11/20 20:27 Pulse Ox 96 12/11/20 20:27 - Orders/Labs/Meds Labs: Laboratory Tests 12/11/20 12/11/20 Range/Units 21:15 21:15 SARS-CoV-2 RNA (JUAN J) Negative (NEGATIVE) Group A Strep (PCR) Detected H (NOT DETECT) Meds: Medications Discontinued Medications Generic Name Dose Route Start Last Admin Trade Name Freq PRN Reason Stop Dose Admin Amoxicillin 500 mg 12/11/20 22:10 12/11/20 22:21 Amoxicillin 500 Mg Cap PO 12/11/20 22:11 500 mg ONETIME ONE Administration - Re-Assessments/Exams Free Text/Narrative Re-Assessment/Exam: Patient is a 25-year-old female presenting to the emergency department with complaints of throat pain and swelling. Also reports subjective fever. On exam, she does have significant tonsillar erythema as well as tonsillar exudates. Presentation suspicious for strep. I have ordered strep and Covid testing. 12/11/20 22:09 Patient's strep screen did come back positive. She will be treated with amoxicillin for strep throat. Discharge instructions as documented. 12/11/20 22:12 You were seen in the emergency department today for throat pain and swelling as well as subjective fever and chills. Covid and strep testing were completed. Were found to be negative for Covid a positive for strep. He was started amoxicillin for treatment of this. Take this medication as prescribed. You may use [id number] Tylenol and ibuprofen as needed for discomfort. If you experience any worsening symptoms or if symptoms fail to improve over the next few days, please not hesitate to return to the emergency department or follow-up in the clinic as needed. Departure - Departure Time of Disposition: 22:12 Disposition: Home, Self-Care 01 Condition: Good Clinical Impression: Strep pharyngitis - Discharge Information *PRESCRIPTION DRUG MONITORING PROGRAM REVIEWED*: No *COPY OF PRESCRIPTION DRUG MONITORING REPORT IN PATIENT GALDINO: No Prescriptions: Amoxicillin 500 mg PO BID 10 Days #19 capsule Instructions: Pharyngitis Referrals: PCP,None [Primary Care Provider] - Forms: ED Department Discharge Additional Instructions: You were seen in the emergency department today for throat pain and swelling as well as subjective fever and chills. Covid and strep testing were completed. Were found to be negative for Covid a positive for strep. He was started amoxicillin for treatment of this. Take this medication as prescribed. You may use [id number] Tylenol and ibuprofen as needed for discomfort. If you experience any worsening symptoms or if symptoms fail to improve over the next few days, please not hesitate to return to the emergency department or follow-up in the clinic as needed. Sepsis Event Note (ED) - Evaluation Sepsis Screening Result: No Definite Risk
[2020-12-11] MEDS ORDERED: Amoxicillin 500 MG Cap PO ONE (22:10)
== END 2020-12-11 22:22 | disposition home or self-care (01) ==
LOC: JD.ED 20:09
DX: J02.0 Streptococcal pharyngitis (principal); J45.909 Unspecified asthma, uncomplicated; Z88.1 Allergy status to other antibiotic agents; Z20.822 Contact with and (suspected) exposure to COVID-19
CPT/HCPCS: 87635; 87651; 99283; A9270; U0002